=== PATIENT | female | born 1960 | race Caucasian/White ===

== ENCOUNTER → 2018-02-03 19:17 | Outpatient (CLI) | payer OTHER, SELFPAY ==
[2018-02-07 13:35] LABS: HPV APTIMA, High Risk Negative (Negative)
== END ==
PROVIDERS: Visit Provider Obstetrics & Gynecology
DX: Z12.4 Encounter for screening for malignant neoplasm of cervix (principal)
CPT/HCPCS: 88175; G0145

== ENCOUNTER → 2018-04-22 09:45 | Outpatient (CLI) | payer OTHER, SELFPAY ==
--- NOTE | 2018-04-22 09:47 | BI_ITS ---
MAMMOGRAPHY - BILATERAL SCREENING 3-D JOLANTA SYNTHESIS REASON FOR EXAM: Female, 57 years old. Bilateral Screening 3-D tomosynthesis PERTINENT HISTORY: Asymptomatic. No significant family history. TECHNIQUE: 2-D mammograms and 3-D Jolanta synthesis of the breast (s) were performed. CAD was performed. COMPARISON: 04/02/2017, 03/12/2016 and 03/02/2015. FINDINGS: The breast composition is heterogeneously dense that can obscure small breast masses. Scattered benign calcifications are seen. No dense spiculated dominant masses or suspicious microcalcification cluster are identified. No new architectural distortion, asymmetric density, adenopathy, skin thickening or nipple retraction identified. There has been no significant change since the most recent prior study identified. BI/SCREENING MAMM (CAD), BILAT IMPRESSION: No mammographic sign of malignancy. Routine yearly mammograms recommended. ASSESSMENT CATEGORY: BIRADS Category 2: Benign. A letter regarding these results will be sent to the patient by the facility within 30 days. FOLLOW UP RECOMMENDATION: Yearly follow up mammogram recommended. (A) Limitations above. Any palpable lesion if present should be followed based on clinical grounds and biopsy performed if clinically persistent for 3 months or increasing size. Approximately 10% of breast cancers are not detected by mammography. A normal mammogram should not delay biopsy of a clinically suspicious abnormality. Dense breast tissue may obscure neoplasm. Electronically Signed: Ronnie Mclaughlin, at 13:42 EDT Tel , Service support ,
== END ==
PROVIDERS: Family Provider Family Medicine; PCP Family Medicine; Referring Provider Family Medicine; Visit Provider Family Medicine
DX: Z12.31 Encounter for screening mammogram for malignant neoplasm of breast (principal)
CPT/HCPCS: 77063; 77067

== ENCOUNTER → 2019-04-23 07:00 | Outpatient (CLI) | payer OTHER, SELFPAY ==
[2019-02-09 17:32] VITALS: BMI 27.4
[2019-03-19 09:23] VITALS: BMI 27.4
--- NOTE | 2019-04-23 07:00 | BI_ITS ---
BILATERAL DIGITAL MAMMOGRAM WITH TOMOSYNTHESIS: Mediolateraloblique and craniocaudal views demonstrate no evidence of dominant parenchymal masses. No cluster of microcalcifications or architectural distortion is seen. No evidence of skin thickening is identified. There has been no significant change since 04/22/2018. Breast Density: The breast tissue is extremely dense which may lower the sensitivity of mammography. CAD was used to assist in final assessment. BI/SCREEN MAMM (CAD) W/JOLANTA BILAT IMPRESSION: Normal bilateral mammogram Yearly follow-up mammogram recommended. ASSESSMENT CATEGORY: BIRADS Category 1: Negative. A letter regarding these results will be sent to the patient by the facility within 30 days. Continued annual mammograms is recommended. Approximately 10% of breast cancers are not detected by mammography. A normal mammogram should not delay biopsy of a clinically suspicious abnormality. [id number] Electronically Signed: Drew Elena, at 16:52 EDT Tel , Service support ,
== END ==
PROVIDERS: Family Provider Family Medicine; PCP Family Medicine; Referring Provider Obstetrics & Gynecology; Visit Provider Obstetrics & Gynecology
DX: Z12.31 Encounter for screening mammogram for malignant neoplasm of breast (principal)
CPT/HCPCS: 77063; 77067

== ENCOUNTER → 2019-07-06 08:15 | Outpatient (CLI) | payer OTHER, SELFPAY ==
[2019-03-19 09:23] VITALS: BMI 27.4
--- NOTE | 2019-07-06 08:22 | RAD_ITS ---
STUDY: X-RAY - LEFT SHOULDER REASON FOR EXAM: Female, 58 years old. CHRONIC LEFT SHOULDER PAIN, DECREASED ROM TECHNIQUE: 4 view(s) of the shoulder. COMPARISON: None. FINDINGS: Normal glenohumeral articulation. Normal acromioclavicular joint. Normal acromion. Normal humeral head and visualized proximal humerus. The soft tissue structures are unremarkable. Normal visualized pulmonary apex. RAD/Shoulder min 2 Views IMPRESSION: Normal x-ray examination of the shoulder. Electronically Signed: Asher Crowley MD at 13:20 EST Tel , Service support ,
== END ==
PROVIDERS: Family Provider Family Medicine; PCP Family Medicine; Referring Provider Family Medicine; Visit Provider Family Medicine
DX: M25.512 Pain in left shoulder (principal)
CPT/HCPCS: 73030

== ENCOUNTER 2019-07-13 07:15 | Outpatient (RCR) | payer OTHER, SELFPAY ==
--- NOTE | 2018-12-24 16:30 | MASS.EVAL_ITS ---
Massage Therapy Evaluation: Initial Evaluation Date: 12/23/2018 SUBJECTIVE: Gertrudis is a 58 year old female who was referred to the [facility] facility for a massotherapy evaluation by Dr. Cruz with the diagnosis of low back pain. Gertrudis presents today with the symptoms of pain and stiffness in her low back. She also complains of tension and pain in her neck, mid back. 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 She reports having minimal improvement with exercise and stretching. OBJECTIVE: Upon observation Gertrudis has some posture issues with her head and shoulders forward from the neutral position in sitting and standing. After examination and palpation I found Gertrudis to have high muscle tension with tenderness and myofascial restrictions in her sub occipitals, levator scapulae, trapezius, rhomboids, scalenes, and thoracic paraspinals. Her QL?s, lumbar paraspinals, piriformis, glute medius and minimus all were very tight with fascial restrictions, tender points and trigger points. The first treatment consisted of a one hour massage to her upper body with myofascial release, muscle stripping, trigger point compression techniques, and cervical manual traction. ASSESSMENT: I feel that Gertrudis is a good candidate for massotherapy at this time. She had a favorable response to the first treatment with reduction in her muscle aches, pain and tension. She also had improvement in her cervical flexibility and low back flexibility. PLAN: The plan of care was reviewed with the patient. The patient is to be seen on an as needed basis for a total of ten sessions with the recommendation of once every month for a one hour treatment.
--- NOTE | 2019-07-13 08:23 | MASS.DISCH ---
Massage Therapy Discharge Summary: Discharge Date: 07/13/2019 Gertrudis was seen for a massotherapy evaluation on 12/23/2018 with the diagnosis of low back pain. She was treated with six sessions of massage therapy consisting of moderate to deep pressure soft tissue techniques, myofascial release and trigger point compression to her cervical, thoracic, lower back, upper extremities, lower extremities and hips. Gertrudis responded well to the therapy by reporting decreased tension and pain throughout her head, neck, shoulders, lower back and hips. Her goals for therapy were met throughout the treatment sessions. At this time this patient is being discharged from our care at [facility] facility.
== END 2019-07-13 19:00 | disposition home or self-care (01) ==
LOC: MASS 07:15
PROVIDERS: Family Provider Family Medicine; PCP Family Medicine; Referring Provider Family Medicine; Visit Provider Family Medicine
DX: M54.5 Low back pain (principal)
CPT/HCPCS: 97124

== ENCOUNTER → 2019-07-28 06:18 | Outpatient (CLI) | payer OTHER, SELFPAY ==
[2019-03-19 09:23] VITALS: BMI 27.4
--- NOTE | 2019-07-28 06:37 | MRI_ITS ---
STUDY: MRI LEFT SHOULDER REASON FOR EXAM: Left shoulder pain for 6-8 months, limited range of motion, no specific injury. TECHNIQUE: Standardized fat and water weighted pulse sequences were obtained in all 3 orthogonal planes. COMPARISON: Radiographs 07/06/2019. FINDINGS: There is supraspinatus tendinosis and a small low-grade partial thickness tear of the articular surface of the distal anterior supraspinatus tendon measuring 1 cm in length (proton density coronal image 7; T2 coronal image 7). Normal infraspinatus tendon. There is mild subscapularis tendinosis and a small low-grade partial thickness tear of the undersurface of the subscapularis tendon (proton density axial image 13; T2 axial image 13) measuring 0.5 cm in length. Normal teres minor tendon. Normal supraspinatus muscle. Normal infraspinatus muscle. Normal subscapularis muscle. Normal teres minor muscle. There is a small glenohumeral joint effusion with fluid extending into the bicipital tendon sheath. There is a small cyst in the posterior aspect of the greater tuberosity. Normal biceps labral complex with a small sublabral recess (proton density coronal image 9). Normal intracapsular long biceps tendon. Normal labrum. Normal capsulo- ligamentous complex. There is mild acromioclavicular arthrosis without substantial undersurface osteophytes (T2 sagittal image 7). There is a Type II morphology (curved), with a neutral orientation. There is a small volume of subacromial-subdeltoid bursal fluid. Normal visualized coracohumeral and coracoacromial ligaments. Normal deltoid muscle. Normal trapezius muscle. MRI/Upper Ext Joint Only(Routine) IMPRESSION: Small low-grade partial thickness tear and tendinosis of the supraspinatus tendon. Small low-grade partial thickness tear and mild tendinosis of the subscapularis tendon. Mild acromioclavicular arthrosis. Mild subacromial-subdeltoid bursitis. Small glenohumeral joint effusion. Electronically Signed: Mario Mckinnon MD at 7:34 EST Tel , Service support ,
== END ==
PROVIDERS: Family Provider Family Medicine; PCP Family Medicine; Referring Provider Family Medicine; Visit Provider Family Medicine
DX: M75.112 Incomplete rotator cuff tear or rupture of left shoulder, not specified as traumatic (principal); M19.012 Primary osteoarthritis, left shoulder
CPT/HCPCS: 73221

== ENCOUNTER 2019-09-11 07:30 | Outpatient (RCR) | payer OTHER, SELFPAY ==
[2019-03-19 09:23] VITALS: BMI 27.4
--- NOTE | 2019-08-11 17:38 | HP.PTEVAL_ITS ---
Patient's Visit Information GERTRUDIS ARELLANO is a 58 year old F referred to Physical Therapy by Gertrudis Cruz DO with a diagnosis of L shoulder bursitis, OA and partial thickness tear.. Date of Evaluation: 08/11/19 Physical Therapist: Topher Gonzalez, DPT, OCS, CSCS - Visit Plan Frequency: 3x /Week Duration: 2-4 Weeks Plan: 3x/week for 2-4 weeks for... 1. US nonthermal to R supra unti comfortable at rest. 2. manual grade 1 ROM for pain and inflammation to L shoulder. 3. strengthen L scap and RC and posture and progress to HEP. 4. Ensure activitiy modification of sleeping position, sitting posture, ergonomics. - Subjective Findings: L shoulder hurts. Reaching out to side hurts down upper arm. Did MRI and has some small tendon tears. It has hurt for 8 months intemrittently with reaching, comfortable at rest for the most part. Sleeping on L side is not possible but she would like to. Is a side belly sleeper. Hurts in morning. Aches all the time if uses it. Is right handed. 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 Worse after work. 8 hour shifts+. Basic ADLs are OK and getting done but painful, bra is painful. Can fasten belt. Up to the side and heavy objects are the worst. Hobbies include grandkids ballgames, No problem with hobbies but can hurt. - Pain L shoulder/upper arm Pain Intensity (Out of 10): 2 Pain Intensity Range: 0, 8 Comment: putting coat on - Objective L shoulder tender to palpation moderately at supra and subscap insertion. Posture is slightly forward head and protracted scap. + Brewer Enrrique and neer on L, - external rotation lag test, - drop arm test. Has full aROM of R shoulder and L shoulder but painful arc on L abd and flexion adn slow and hesitant to lift and end range of external rotation. Strength R shoulder 4/5 adn L ext rot 4- painful, IR 4, bi and tri 4/5, and flexion and abduction 3+ adn painful. 2/3 bi and tricep reflexes. Sensation UE WNL to gross light touch. - Goals Goal 1:: Patient comfortable at rest adn 2/10 at workst lifting L arm, 755 better. Goal Time Frame: 4-6 Weeks Goal 2:: i approp HEP to minimzie future problems and management of condition. Goal Time Frame: 4-6 Weeks Goal 3:: Pt sleep without waking due to pain. Goal Time Frame: 4-6 Weeks Goal 4:: Work without ncereased pain. Goal Time Frame: 4-6 Weeks Goal 5:: Quickdash score of <15 Goal Time Frame: 4-6 Weeks - Rehabilitation Potential Physical Therapy Diagnosis: L shoulder pain. Rehabilitation Potential: Fair - Anticipated Interventions Patient/Client Instruction: Educate patient on: Condition, Plan of Care For the Purpose of:: To decrease pain, To improve muscle performance and motor function, To improve ability of physical actions for home/community/work/leisure Therapeutic Exercise to Include: Strength training, Flexibilty training, Passive ROM, Active ROM For the Purpose of:: To decrease pain, To decrease swelling/inflammation, To improve muscle performance and motor function, To improve ability of physical actions for home/community/work/leisure Manual Therapy Techniques to Include: Mobilization Comment: grade 1 L shoulder For the Purpose of:: To decrease pain Ultrasound (thermal/non thermal): Yes For the Purpose of:: To decrease swelling/inflammation, To improve nutrient delivery to tissue Thank you for the opportunity to evaluate your patient. For Medicare and Medicare HMO plans, please review the plan of care and approve it. It will need to be FAXED BACK to us at [phone] for Medicare purposes. For Medicare only, by signing this I certify the plan of care. Please let me know if there are questions or concerns regarding this plan of care. Physician Signature: Date:
--- NOTE | 2019-08-28 07:58 | HP.PTREVAL ---
Gertrudis Cruz, DO, It has been my pleasure to treat GERTRUDIS ARELLANO over the last 8 visits for L shoulder bursitis, OA and partial thickness tear.. Please see the progress note below for an update on the physical therapy plan of care! Subjective: Activities normal but hurts sometimes. Comfortable at rest.Sleeping well but not on L side. Doing OTB exercises 2-3x10. Work is going OK as far as shoulder is concerned. Has not gotten under desk keyboard tray yet. Objective/Function: Full aROM L shoulder but painful especially thumb down abd and slightly with flexion. Strength is 4- flexiona dn abd with pain, 4 ext rotation slight pain, IR and biceps, triceps 4+ without pain. Coming along nicely but slowly Plan Plan: f/u 2 weeks to check progress on sbjective, see if needs new TB and possibly elevation strennghtening. Goals Goal 1:: Patient comfortable at rest adn 2/10 at workst lifting L arm, 755 better. Goal Time Frame: 4-6 Weeks Goal Progress: Progressing Goal 2:: i approp HEP to minimzie future problems and management of condition. Goal Time Frame: 4-6 Weeks Goal Progress: Goal Met Goal 3:: Pt sleep without waking due to pain. Goal Time Frame: 4-6 Weeks Goal Progress: Progressing Goal 4:: Work without ncereased pain. Goal Time Frame: 4-6 Weeks Goal 5:: Quickdash score of <15 Goal Time Frame: 4-6 Weeks Anticipated Interventions Patient/Client Instruction: Educate patient on: Condition, Plan of Care For the Purpose of:: To decrease pain, To improve muscle performance and motor function, To improve ability of physical actions for home/community/work/leisure Therapeutic Exercise to Include: Strength training, Flexibilty training, Passive ROM, Active ROM For the Purpose of:: To decrease pain, To decrease swelling/inflammation, To improve muscle performance and motor function, To improve ability of physical actions for home/community/work/leisure Manual Therapy Techniques to Include: Mobilization Comment: grade 1 L shoulder For the Purpose of:: To decrease pain Ultrasound (thermal/non thermal): Yes For the Purpose of:: To decrease swelling/inflammation, To improve nutrient delivery to tissue Please do not hesitate to contact me at [phone] by phone or if you have questions or concerns regarding this new plan of care! Sincerely, Topher Gonzalez, DPT, OCS, CSCS
--- NOTE | 2019-09-11 07:56 | HP.PTDCSUM ---
HP - PT D/C Summary It has been my pleasure to treat GERTRUDIS ARELLANO under orders from Gertrudis Cruz DO, for the diagnosis of L shoulder bursitis, OA and partial thickness tear. for a total of 9 visit(s). Discharge Date: 09/11/19 Please see the following information for a summary of their discharge status. - Subjective Subjective: Not as compliant with exercises as she would like, daily. Going the right way. Still hurts to lift out to side. Pain in last week lifting to side with lifting 10/10 and drying hair bringing it back down. Uncomfortable at rest annoying 3/10. - Pain L shoulder/upper arm Pain Intensity (Out of 10): 3 - Overall Improvement % Improvement: 60 - Objective Objective/Function: Full aROM L shoulder but pain with elevation abduction> flexion. weak and painful in ext rotation adn flexion and abduction. + speeds and empty can adn mario alberto gray. Appropriate to return to doctor for next step(ortho?). Very tender of suprascap tendon. - Goals Goal 1:: Patient comfortable at rest adn 2/10 at workst lifting L arm, 755 better. Goal Progress: Not Progressing Goal 2:: i approp HEP to minimzie future problems and management of condition. Goal Progress: Goal Met Goal 3:: Pt sleep without waking due to pain. Goal Progress: Not Progressing Goal 4:: Work without ncereased pain. Goal Progress: Not Progressing Goal 5:: Quickdash score of <15 Goal Progress: Not Progressing - Plan Plan: d/c and pt to schedule with physicain for f/u due to lack of continued improvement and her frustration. - D/C Information Discharge Comments: Pt to cotnact doctor regarding f/u due to lack of progress in PT and frustrration If there are questions or concerns regarding this patient's physical therapy, please feel free to call me at [phone]. Thank you for the referral of this patient. Sincerely, Topher Gonzalez, DPT, OCS, CSCS
== END 2019-09-11 19:00 | disposition home or self-care (01) ==
LOC: PT 07:30
PROVIDERS: Family Provider Family Medicine; PCP Family Medicine; Visit Provider Family Medicine
DX: M75.112 Incomplete rotator cuff tear or rupture of left shoulder, not specified as traumatic (principal); M75.52 Bursitis of left shoulder; M19.012 Primary osteoarthritis, left shoulder
CPT/HCPCS: 97035; 97110; 97116; 97161; 97164; 97530

== ENCOUNTER → 2019-09-29 07:11 | Outpatient (CLI) | payer OTHER, SELFPAY ==
[2019-03-19 09:23] VITALS: BMI 27.4
--- NOTE | 2019-09-29 07:13 | RAD_ITS ---
STUDY: X-RAY - LUMBAR SPINE REASON FOR EXAM: Female, 58 years old. LBP, left leg pain -- NKI -- pt states pain x a long time TECHNIQUE: 5 view(s) of the lumbar spine were obtained. COMPARISON: None FINDINGS: Normal lumbar lordosis. Minimal scoliosis, convexity to the left. There is a normal alignment of the vertebrae. There is diffuse demineralization with multi-level endplate spondylosis. There is multi-level degenerative disc disease with multi-level disc space narrowing. There is no demonstrated fracture. There is no demonstrated spondylolysis of the pars interarticulares. The soft tissue structures are unremarkable. RAD/L/S Spine Min 4 Views IMPRESSION: Osteopenia along with minimal scoliosis, convexity to the left. No acute fracture, spondylolisthesis or pars defect. Electronically Signed: Shirlene Davis MD at 0:24 EDT , Service support ,
--- NOTE | 2019-09-29 07:13 | RAD_ITS ---
STUDY: X-RAY - RIGHT SHOULDER REASON FOR EXAM: Female, 58 years old. right shoulder pain x several months -- NKI -- limited ROM, pain when raising arm laterally TECHNIQUE: 4 view(s) of the shoulder. COMPARISON: None. FINDINGS: There is mild degenerative arthrosis of the glenohumeral articulation. Normal acromioclavicular joint. Normal acromion. Normal humeral head and visualized proximal humerus. The soft tissue structures are unremarkable. There is no demonstrated fracture. Normal visualized pulmonary apex. RAD/Shoulder min 2 Views IMPRESSION: Mild degenerative disease otherwise normal x-ray examination of the shoulder. Electronically Signed: Shirlene Davis MD at 0:28 EDT , Service support ,
== END ==
PROVIDERS: PCP Family Medicine; Referring Provider Family Medicine; Visit Provider Family Medicine
DX: M25.511 Pain in right shoulder (principal); M54.16 Radiculopathy, lumbar region
CPT/HCPCS: 72110; 73030

== ENCOUNTER → 2020-04-26 12:09 | Outpatient (CLI) | payer OTHER, SELFPAY ==
[2019-03-19 09:23] VITALS: BMI 27.4
--- NOTE | 2020-04-26 12:48 | EKG12_ITS ---
Test Reason : PRE OP Blood Pressure : / mmHG Vent. Rate : 077 BPM Atrial Rate : 077 BPM P-R Int : 154 ms QRS Dur : 068 ms QT Int : 390 ms P-R-T Axes : 063 032 052 degrees QTc Int : 441 ms Normal sinus rhythm Nonspecific ST abnormality Abnormal ECG When compared with ECG of 08-FEB-2000 13:39, No significant change was found Confirmed by BARBER GUZMAN, GARRY ([id number]), digital editor PAMELA SONI ([id number]) on 04/27/2020 11:37:22 AM Referred By: Fernando Ham Confirmed By:STEFANI BLANDON MD
[2020-04-26 13:39] LABS: Hematocrit 42.8 % (37-47); Hemoglobin 13.7 g/dL (12.0-15.0); Mean Corpuscular Volume 93.9 fL (81-99); Mean Platelet Vol. 10.1 fl (6.2-12.0); Platelet Count 270 K/mm3 (150-450); RBC Distribution Width CV 12.2 % (11.6-14.6); RBC Distribution Width SD 42.3 fl (35.1-43.9); Red Blood Count 4.56 M/mm3 (4.2-5.4); White Blood Count 9.2 K/mm3 (4.4-11.0)
[2020-04-26 14:33] LABS: Anion Gap 5 (5-15); BUN 12 mg/dL (7-18); BUN/Creat Ratio 12.8 RATIO (10-20); Calcium,Total 9.4 mg/dL (8.5-10.1); Chloride 105 mmol/L (98-107); Creatinine, Serum 0.94 mg/dL (0.55-1.02); EST Glomerular Filtration Rate 64 mL/min (>60); Est Glom Filt Rate - Afr Amer 78 mL/min (>60); Glucose 113 mg/dL (74-106); Potassium 4.6 mmol/L (3.5-5.1); Sodium Level 140 mmol/L (136-145)
== END ==
PROVIDERS: PCP Family Medicine; Referring Provider Physician Assistant; Visit Provider Physician Assistant
CPT/HCPCS: 36415; 80048; 85027; 93005

== ENCOUNTER → 2020-05-06 09:50 | Outpatient (CLI) | payer OTHER, SELFPAY ==
[2019-03-19 09:23] VITALS: BMI 27.4
== END ==
PROVIDERS: PCP Family Medicine; Referring Provider Physician Assistant; Visit Provider Physician Assistant
DX: Z20.828 Contact with and (suspected) exposure to other viral communicable diseases (principal)
CPT/HCPCS: 87635; C9803; U0003

== ENCOUNTER → 2020-08-08 16:45 | Outpatient (CLI) | payer OTHER, SELFPAY ==
[2020-08-08 14:12] VITALS: BMI 28.3
[2020-08-15 08:06] LABS: HPV Genotype 16, Aptima Negative (Negative)
[2020-08-15 10:05] LABS: HPV APTIMA, High Risk Positive (Negative); HPV Genotype 18,45 Aptima Negative (Negative)
== END ==
PROVIDERS: PCP Family Medicine; Visit Provider Nurse Practitioner Women's Health
DX: Z12.4 Encounter for screening for malignant neoplasm of cervix (principal)
CPT/HCPCS: 87624; 88175; G0145

== ENCOUNTER → 2020-08-17 12:28 | Outpatient (CLI) | payer OTHER, SELFPAY ==
[2020-08-08 14:12] VITALS: BMI 28.3
[2020-08-17 10:51] VITALS: BMI 28.3
--- NOTE | 2020-08-17 12:31 | BI_ITS ---
MAMMOGRAPHY - BILATERAL SCREENING REASON FOR EXAM: Female, 59 years old. Routine annual screening examination. PERTINENT HISTORY: Non-contributory. TECHNIQUE: Digital bilateral breast jolanta (3D mammographic acquisition) in the CC and MLO projections. 2-D mediolateral oblique (MLO) and craniocaudad (CC) views of both breasts were obtained. CAD: Full Field Digital Mammography with Computer Added Detection was performed. COMPARISON: Comparison is made with prior examination 04/23/2019 and 04/22/2018. FINDINGS: Breast Composition: The breasts are heterogeneously dense, which may obscure small masses. There are no dominant masses or suspicious calcifications. Stable small benign-appearing bilateral axillary lymph nodes. No other significant abnormalities are identified. There has been no significant change since the prior study. BI/SCRN MAMM (CAD)W/JOLANTA BILAT IMPRESSION: Stable bilateral screening mammogram. Yearly follow-up mammogram recommended. (A) ASSESSMENT CATEGORY: BIRADS Category 2: Benign. A letter regarding these results will be sent to the patient by the facility within 30 days. Approximately 10% of breast cancers are not detected by mammography. A normal mammogram should not delay biopsy of a clinically suspicious abnormality. [id number] Electronically Signed: Allen Jay MD at 13:35 EST , Service support ,
[2020-08-23 15:04] LABS: HPV APTIMA, High Risk Negative (Negative)
== END ==
PROVIDERS: PCP Family Medicine; Referring Provider Nurse Practitioner Women's Health; Visit Provider Nurse Practitioner Women's Health
DX: Z12.31 Encounter for screening mammogram for malignant neoplasm of breast (principal); R87.810 Cervical high risk human papillomavirus (HPV) DNA test positive
CPT/HCPCS: 77063; 77067; 87624; 88175; G0145

== ENCOUNTER → 2021-01-31 12:34 | Outpatient (CLI) | payer OTHER, SELFPAY ==
[2020-08-17 10:51] VITALS: BMI 28.3
[2021-01-31 13:46] LABS: Erythrocyte Sedimentation Rate 9 mm/hr (0-30)
[2021-01-31 13:49] LABS: Absolute Lymphocyte Count 1.97 X10^3/uL (0.83-4.51); Absolute Neutrophil Count 4.6 X10^3/uL (2.0-7.7); Basophil# 0.03 X10^3/uL; Basophil% 0.4 % (0-1); Eosinophil# 0.15 X10^3/uL; Hematocrit 43.9 % (37-47); Hemoglobin 14.2 g/dL (12.0-15.0); Lymphocyte # 1.97 X10^3/ul (0.83-4.51); Lymphocyte % 25.9 % (19-41); Mean Corp Hgb Conc 32.3 g/dL (32-36); Mean Corpuscular Hgb 29.2 pg (27.0-32.0); Mean Corpuscular Volume 90.1 fL (81-99); Mean Platelet Vol. 9.9 fl (6.2-12.0); Monocyte# 0.82 X10^3/uL; Monocyte% 10.8 % (0-10); NRBC Flagged by Analyzer 0 % (0-5); Neutrophil % 60.5 % (47-70); Platelet Count 280 K/mm3 (150-450); RBC Distribution Width CV 12.8 % (11.6-14.6); RBC Distribution Width SD 42.2 fl (35.1-43.9); Red Blood Count 4.87 M/mm3 (4.2-5.4); White Blood Count 7.6 K/mm3 (4.4-11.0)
[2021-01-31 14:06] LABS: ALB/GLOB Ratio 1.2 RATIO (0.9-2.4); AST(SGOT) 21 U/L (15-37); Alanine Aminotransfer ALT/SGPT 39 U/L (13-56); Albumin, Serum 4.2 g/dL (3.2-5.0); Alkaline Phosphatase 98 U/L (45-117); Anion Gap 4 (5-15); BUN 11 mg/dL (7-18); BUN/Creat Ratio 13.1 RATIO (10-20); Calcium,Total 9.5 mg/dL (8.5-10.1); Chloride 106 mmol/L (98-107); Creatinine, Serum 0.84 mg/dL (0.55-1.02); EST Glomerular Filtration Rate 73 mL/min (>60); Est Glom Filt Rate - Afr Amer 88 mL/min (>60); Globulin 3.5 g/dL (2.2-4.2); Glucose 89 mg/dL (74-106); Iron 75 ug/dL (50-170); Potassium 4.2 mmol/L (3.5-5.1); Protein, Total 7.7 g/dL (6.4-8.2); Sodium Level 142 mmol/L (136-145); Vitamin B12 445 pg/mL (211-911)
== END ==
PROVIDERS: PCP Family Medicine; Referring Provider Family Medicine; Visit Provider Family Medicine
DX: R19.7 Diarrhea, unspecified (principal)
CPT/HCPCS: 36415; 80053; 82607; 83540; 85025; 85652; 86140

== ENCOUNTER 2021-08-21 16:30 | Outpatient (CLI) | payer OTHER, SELFPAY ==
[2021-08-25 14:15] LABS: HPV APTIMA, High Risk Negative (Negative)
== END 2021-08-21 23:59 | disposition home or self-care (01) ==
LOC: LABSPEC 16:32
PROVIDERS: PCP Family Medicine; Visit Provider Nurse Practitioner Women's Health
DX: Z12.4 Encounter for screening for malignant neoplasm of cervix (principal); Z78.0 Asymptomatic menopausal state
CPT/HCPCS: 87624; 88175; G0145

== ENCOUNTER 2021-10-31 06:47 | Day surgery (SDC) | payer OTHER, SELFPAY ==
--- NOTE | 2021-10-31 | COLBX_PTH ---
PATIENT: GERTRUDIS ARELLANO LOC: EN U#:[id number] AGE/SX: 61/F ROOM: RE10/31/[address]: Dr. Ronnie Mac MD : 1960 BED: DIS: 10/31/2021 SPEC #: [id number] RECD: 10/31/21 09:42 STATUS: ARNALDO REMirlande #: [id number] SHAMEKA: 10/31/21 00:[address]: Ronnie Mac DEPT: SURGICAL PATHOLOGY RECD BY: Sarthak Parsons ENTERED: 10/31/21 10:27 SP TYPE: COLON BX TOMMY DR: Dr. Gertrudis Cruz, DO Tissues: A - COLON BIOPSY B - Transverse colon C - Descending colon Procedures: Surgery Specimen Level IV HEADER OPERATION: Colonoscopy PRE-OP DIAGNOSIS: Screening TISSUE SUBMITTED: A ? Random colon biopsy, B ? Mid transverse polyp biopsy, C ? Descending colon polyp biopsy MICROSCOPIC DIAGNOSIS A. Colon, random biopsy: Fragments of colonic mucosa, no pathologic diagnosis. B. Mid transverse colon polyp, biopsy: Fragments of tubular adenoma. C. Descending colon polyp, biopsy: Fragments of tubular adenoma. FIDELIA:nesha 11/01/2021 MICROSCOPIC DESCRIPTION Slides are reviewed. GROSS DESCRIPTION A - Received in fixative is one container labeled with the patient's name and designated random colon biopsy. The specimen consists of multiple irregular fragments of light medeiros soft tissue that in aggregate measure 1 x 0.3 x 0.1 cm. The specimen is totally submitted in one cassette. B - Received in fixative is one container labeled with the patient's name and designated mid transverse polyp. The specimen consists of two irregular fragments of light medeiros soft tissue that in aggregate measure 0.5 x 0.5 x 0.1 cm. The specimen is totally submitted in one cassette. C - Received in fixative is one container labeled with the patient's name and designated descending colon polyp biopsy. The specimen consists of multiple irregular fragments of light medeiros soft tissue that in aggregate measure 0.6 x 0.2 x 0.1 cm. The specimen is totally submitted in one cassette. / AM:nesha 10/31/2021 TC:1 CPT: 86095 x3
[2021-10-31] MEDS: Lactated Ringers 1,000 ML 15 ML IV (07:05)
--- NOTE | 2021-10-31 07:14 | HP.PCM_ITS ---
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: No Is patient in pain?: No Allergies codeine Allergy (Severe, Verified 06/02/21 13:55) unknown guaifenesin Allergy (Severe, Verified 06/02/21 13:55) Unknown levofloxacin [From Levaquin] Allergy (Severe, Verified 06/02/21 13:55) knot in throat naltrexone Allergy (Severe, Verified 06/02/21 13:55) lump in throat, muscle cramps pseudoephedrine Allergy (Severe, Verified 06/02/21 13:55) Unknown Sulfa (Sulfonamide Antibiotics) Allergy (Severe, Verified 06/02/21 13:55) unknown Medications sertraline 25 mg tablet 100 mg PO QDAY tab 11/12/17 [History Confirmed 06/02/21] calcium carbonate-vitamin D3 600 mg (1,500 mg)-400 unit capsule cap PO 02/03/18 [History Confirmed 06/02/21] multivitamin 1 tab PO QAM 02/03/18 [History Confirmed 06/02/21] ascorbate calcium (vitamin C) 500 mg tablet 500 mg PO DAILY 08/08/20 [History Confirmed 06/02/21] atenolol 25 mg tablet 25 mg PO DAILY 03/24/21 [History Confirmed 06/02/21] mupirocin 2 % topical ointment 1 applic TOPICAL TID #15 g 03/24/21 [Rx Confirmed 06/02/21] [facility] Medical History (Updated 06/02/21 @ 15:[address] Ronnie Mac MD) Anxiety Cervicalgia Depression Elevated antinuclear antibody ([place]) level Kalie Rob virus infection H/O osteopenia Intestinal disaccharidase deficiency Leg length discrepancy Low calcium levels Migraine Myalgia and myositis Neurodermatitis Polyarthrosis Positive Lyme disease serology Proteinuria Sesamoiditis Sleep apnea Sprain of left ankle Tachycardia Visual floaters Surgical History Cervical vertebral fusion Ganglion cyst wrist surgery H/O section H/O rotator cuff surgery History of salpingectomy S/P left oophorectomy Family History Mother COPD (chronic obstructive pulmonary disease) Narcolepsy Cardiomyopathy Father COPD (chronic obstructive pulmonary disease) AAA (abdominal aortic aneurysm) Sister Asthma Seizures Migraine Grandmother Diabetes Cancer bone Social History household members: none housing: condominium current occupational status: employed current occupation: [employer] pets and animals: No Smoking Status: Never smoker second hand exposure: No alcohol intake: current alcohol intake frequency: a few times a week Alcohol type: beer and wine substance use type: does not use caffeine: Yes what type of physical activity do you participate in: none seatbelt use: always do you feel safe at home: Yes additional social history: -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 The patient is referred by Dr. Gertrudis Cruz and a written copy of my surgical consult recommendations will return to her. There are concerns of the patient is having intermittent loose stools and this started approximate 1 year prior. Most recent colonoscopy was 10 years ago and was felt to be normal by Dr. Stepan Agrawal. I do not see any family history of colon cancer. As of May 17, 2021 white blood cell count was 7.6 with a hemoglobin 14.2 hematocrit 43.9 and a platelet count of 280,000. Sed rate was 9. C-reactive protein was 10.8. BUN 11 creatinine 0.84. Liver function tests were normal. She denies fever chills or sweats. She has not experienced Covid-19 as far she is aware. She has been vaccinated with 2 shots. She denies personal or family history of inflammatory bowel disease. She has not had any abdominal surgery. She otherwise enjoys a healthy lifestyle ROS General General: No weight change, appetite, fatigue, colon cancer, breast cancer or weakness HEENT HEENT: No difficulty swallowing, eye injury, eye surgery, swollen glands or hoarseness Endo Endocrine: No thyroid disease, diabetes mellitus, thyroid cancer, Hair loss, heat intolerance or cold intolerance Skin Skin: No rash or changing moles Breast Breast: No left breast lump, right breast lump, nipple discharge, breast pain, abnormal mammogram, abnormal US or breast enlargement Musc Musculoskeletal: Yes arthritis; No back problems, rheumatoid arthritis, gout or joint pain Cardio Cardiovascular: No murmur, pacemaker, heart disease, atrial fibrillation, high blood pressure, heart attack, heart stent, palpitations, shortness of breat with exertion or chest pain Psych Psychiatric: Yes depression and anxiety; No hearing voices Resp Respiratory: No shortness of breath, Yes sleep apnea, No cough, No COPD, No asthma, No emphysema and No wheezing Gastro Gastrointestinal: No abdominal pain, No nausea or vomiting, Yes diarrhea, No constipation, No blood in stool, No acid reflux, No hemorrhoids, No ulcers, No gallbladder problem and No black,tarry stools [place] Hematologic: No blood thinners, No blood disorders, No bleeding, No anemia and No blood clots Neuro Neurologic: No system reviewed and no additional complaints, except as documented, No as per HPI, No abnormal gait, No abnormal hearing, No abnormal movements, No abnormal speech, No behavioral changes, No burning sensations, No confusion, No convulsions, No disequilibrium, No dizziness, No localized weakness, No frequent falls, No headache(s), No lack of coordination, No loss of vision, No memory loss, No numbness, No other visual disturbances, No radicular pain, No restless legs, No sensory deficit, No syncope, No tingling, No tremor(s), No weakness and No other Exam Const General: cooperative, healthy appearing, comfortable and no acute distress Nutritional Appearance: overweight Orientation: alert and awake [facility] Head: normal to inspection Eyes General: appearance normal, both eyes and all related structures Resp Effort & Inspection: normal respiratory effort Auscultation: clear to auscultation bilaterally Cardio Rate: regular rate Rhythm: regular rhythm GI Palpation: soft Other: Nontender, no hepatosplenomegaly, Musc Cervical Spine: normal cervical lordosis Neuro General: patient alert and patient awake Extrem General: normal to inspection Psych Appearance: grossly normal Assessment and Plan Assessment and Plan (1) Screening for intestinal cancer: Status: Acute Plan - Dr. Ronnie Mac MD: I recommend a colonoscopy with possible biopsy or polypectomy as indicated. The patient's had some intermittent looser stool issues but difficult to appreciate how symptomatic these are. This is been ongoing for couple years. There is no particular association that she can make. Careful inspection of the bowel and if need be random colonic biopsies would be pursued. She has had an opportunity to ask and have questions answered. She w ould prefer that we perform this with monitored anesthesia care as she states that her previous colonoscopy she was quite tortuous. She is aware of the technique, benefit, risk, alternatives. We will schedule procedure at her discretion. I appreciate the opportunity of assisting with her surgical care. Copy: Dr. Gertrudis Mac M.D., F.A.C.S. I have re-examined the patient. There are no clinical changes since date of exam. Ronnie Mac M.D., F.A.C.S.
[2021-10-31 07:19] VITALS: BP 114/76; PULSE 55; RESP 16; TEMP 36.4; O2SAT 100; BMI 26.7
--- NOTE | 2021-10-31 08:37 | OP.COLON_ITS ---
Patient Name: Gertrudis Uribe Procedure Date: 10/31/2021 8:09 AM Date of : 1960 Age: 61 Procedure: Colonoscopy Indications: Screening for colorectal malignant neoplasm Providers: Ronnie Mac MD Referring MD: Gertrudis Cruz Medicines: See the Anesthesia note for documentation of the administered medications Patient Profile: Last Colonoscopy: 10 years ago. Complications: No immediate complications. Procedure: Pre-Anesthesia Assessment: - Prior to the procedure, a History and Physical was performed, and patient medications and allergies were reviewed. The patient's tolerance of previous anesthesia was also reviewed. The risks and benefits of the procedure and the sedation options and risks were discussed with the patient. All questions were answered, and informed consent was obtained. Prior Anticoagulants: The patient has taken no previous anticoagulant or antiplatelet agents. ASA Grade Assessment: II - A patient with mild systemic disease. After reviewing the risks and benefits, the patient was deemed in satisfactory condition to undergo the procedure. After I obtained informed consent, the scope was passed under direct vision. Throughout the procedure, the patient's blood pressure, pulse, and oxygen saturations were monitored continuously. The colonoscope was introduced through the anus and advanced to the cecum, identified by appendiceal orifice and ileocecal valve. The colonoscopy was performed without difficulty. The patient tolerated the procedure well. The quality of the bowel preparation was good. The ileocecal valve and the appendiceal orifice were photographed. Scope In: 8:20:17 AM Scope Withdrawal Time 0 hours 8 minutes 20 seconds Scope Out: 8:32:27 AM Total Procedure Duration Time 0 hours 12 minutes 10 seconds Findings: The digital rectal exam findings include non-thrombosed external hemorrhoids, non-thrombosed internal hemorrhoids and internal hemorrhoids that prolapse with straining, but spontaneously regress to the resting position (Grade II). A 4 mm polyp was found in the mid transverse colon. The polyp was sessile. The polyp was removed with a cold biopsy forceps. Resection and retrieval were complete. A 4 mm polyp was found in the proximal descending colon. The polyp was sessile. The polyp was removed with a cold biopsy forceps. Resection and retrieval were complete. Biopsies for histology were taken with a cold forceps from the entire colon for evaluation of microscopic colitis. Impression: - Non-thrombosed external hemorrhoids, non-thrombosed internal hemorrhoids and internal hemorrhoids that prolapse with straining, but spontaneously regress to the resting position (Grade II) found on digital rectal exam. - One 4 mm polyp in the mid transverse colon, removed with a cold biopsy forceps. Resected and retrieved. - One 4 mm polyp in the proximal descending colon, removed with a cold biopsy forceps. Resected and retrieved. - Biopsies were taken with a cold forceps from the entire colon for evaluation of microscopic colitis. Recommendation: - Discharge patient to home. - Resume previous diet. - Continue present medications. - Repeat colonoscopy in 5 years for surveillance based on pathology results. - Telephone my office for pathology results in 1 week. Procedure Code(s): --- Professional --- 06456, Colonoscopy, flexible; with biopsy, single or multiple Diagnosis Code(s): --- Professional --- Z12.11, Encounter for screening for malignant neoplasm of colon K64.1, Second degree hemorrhoids K64.4, Residual hemorrhoidal skin tags D12.3, Benign neoplasm of transverse colon (hepatic flexure or splenic flexure) D12.4, Benign neoplasm of descending colon CPT copyright 2017 [employer]. All rights reserved. The codes documented in this report are preliminary and upon laborer aquatic life review may be revised to meet current compliance requirements. Ronnie Mac MD 10/31/2021 8:37:33 AM This report has been signed electronically. Number of Addenda: 0 Note Initiated On: 10/31/2021 8:09 AM
[2021-10-31 08:38] VITALS: BP 104/66; BP 114/76; PULSE 81; RESP 16; TEMP 36.4; O2SAT 96
--- NOTE | 2021-10-31 08:38 | OP.CCLET_ITS ---
10/31/2021 Gertrudis Cruz [address] [place] [address] Re : Colonoscopy procedure for Gertrudis Uribe Dear Dr. Cruz This procedure was performed on Sunday, October 31, 2021. My impressions and recommendations are as follows: Impressions : - Non-thrombosed external hemorrhoids, non-thrombosed internal hemorrhoids and internal hemorrhoids that prolapse with straining, but spontaneously regress to the resting position (Grade II) found on digital rectal exam. - One 4 mm polyp in the mid transverse colon, removed with a cold biopsy forceps. Resected and retrieved. - One 4 mm polyp in the proximal descending colon, removed with a cold biopsy forceps. Resected and retrieved. - Biopsies were taken with a cold forceps from the entire colon for evaluation of microscopic colitis. Recommendations : - Discharge patient to home. - Resume previous diet. - Continue present medications. - Repeat colonoscopy in 5 years for surveillance based on pathology results. - Telephone my office for pathology results in 1 week. My findings are described in the full procedure note, which is enclosed. If I can be of further assistance, please feel free to contact me at Doctor phone number(s): Work: . Sincerely, Ronnie Mac MD 10/31/2021 8:37:33 AM This report has been signed electronically.
[2021-10-31 08:43] VITALS: BP 114/76; BP 115/67; PULSE 76; RESP 16; O2SAT 95
[2021-10-31 08:48] VITALS: BP 112/67; BP 114/76; PULSE 72; RESP 16; O2SAT 95
[2021-10-31 08:53] VITALS: BP 113/70; BP 114/76; PULSE 65; RESP 16; TEMP 36.3; O2SAT 96
[2021-10-31 09:00] VITALS: BP 114/76
== END 2021-10-31 09:29 | disposition home or self-care (01) ==
LOC: EN 06:50 → AC 06:52
PROVIDERS: PCP Family Medicine; Referring Provider Family Medicine; Visit Provider Surgery
PROC: 0DJD8ZZ Inspection of Lower Intestinal Tract, Via Natural or Artificial Opening Endoscopic (ICD-10-PCS; CPT 45378; principal; 2021-10-31 07:55)
DX: Z12.11 Encounter for screening for malignant neoplasm of colon (principal); D12.3 Benign neoplasm of transverse colon; D12.4 Benign neoplasm of descending colon; K64.1 Second degree hemorrhoids; K64.4 Residual hemorrhoidal skin tags; I10 Essential (primary) hypertension; E66.3 Overweight; M19.90 Unspecified osteoarthritis, unspecified site; G47.30 Sleep apnea, unspecified; F32.A Depression, unspecified; F41.9 Anxiety disorder, unspecified; Z68.26 Body mass index [BMI] 26.0-26.9, adult; Z79.899 Other long term (current) drug therapy
CPT/HCPCS: 45380; 87426; 88305; C9803; J7120

== ENCOUNTER → 2022-09-17 | Outpatient (CLI) | payer OTHER, SELFPAY ==
--- NOTE | 2022-09-17 10:12 | BI_ITS ---
MAMMOGRAPHY - BILATERAL SCREENING REASON FOR EXAM: Female, 61 years old. Routine annual screening examination. PERTINENT HISTORY: Non-contributory. TECHNIQUE: Digital bilateral breast jolanta (3D mammographic acquisition) in the CC and MLO projections. 2-D mediolateral oblique (MLO) and craniocaudad (CC) views of both breasts were obtained. CAD: Full Field Digital Mammography with Computer Added Detection was performed. COMPARISON: Comparison is made with prior study dated August 17, 2020 and April 23, 2019. FINDINGS: Breast Composition: The breasts are heterogeneously dense, which may obscure small masses. There are no dominant masses or suspicious calcifications. Stable small benign-appearing bilateral axillary lymph nodes. No other significant abnormalities are identified. There has been no significant change since the prior study. BI/SCRN MAMM (CAD)W/JOLANTA BILAT IMPRESSION: Stable bilateral screening mammogram. Yearly follow-up mammogram recommended. (A) ASSESSMENT CATEGORY: BIRADS Category 2: Benign. A letter regarding these results will be sent to the patient by the facility within 30 days. Approximately 10% of breast cancers are not detected by mammography. A normal mammogram should not delay biopsy of a clinically suspicious abnormality. [id number] Electronically Signed: Allen Jay MD at 11:36 EST ,
[2022-09-21 00:07] LABS: HPV Genotype 16, Aptima Negative (Negative)
[2022-09-21 08:28] LABS: HPV APTIMA, High Risk Positive (Negative); HPV Genotype 18,45 Aptima Negative (Negative)
== END | disposition home or self-care (01) ==
PROVIDERS: PCP Family Medicine; Referring Provider Nurse Practitioner Women's Health; Visit Provider Nurse Practitioner Women's Health
DX: Z12.31 Encounter for screening mammogram for malignant neoplasm of breast (principal)
CPT/HCPCS: 77063; 77067; 87624; 88175; G0145

== ENCOUNTER → 2023-03-19 | Outpatient (CLI) | payer OTHER, SELFPAY ==
[2023-03-19 09:49] LABS: Absolute Lymphocyte Count 1.68 X10^3/uL (0.83-4.51); Absolute Neutrophil Count 4.4 X10^3/uL (2.0-7.7); Basophil# 0.02 X10^3/uL; Basophil% 0.3 % (0-1); Eosinophil# 0.22 X10^3/uL; Eosinophils% 3.2 % (0-5); Hematocrit 40.1 % (37-47); Lymphocyte # 1.68 X10^3/ul (0.83-4.51); Lymphocyte % 24.3 % (19-41); Mean Corp Hgb Conc 34.9 g/dL (32-36); Mean Corpuscular Hgb 31.9 pg (27.0-32.0); Mean Corpuscular Volume 91.3 fL (81-99); Mean Platelet Vol. 9.3 fl (6.2-12.0); Monocyte# 0.56 X10^3/uL; Monocyte% 8.1 % (0-10); NRBC Flagged by Analyzer 0 % (0-5); Neutrophil # 4.42 X10^3/uL (2.7-7.7); Neutrophil % 63.8 % (47-70); Platelet Count 216 K/mm3 (150-450); RBC Distribution Width CV 12.8 % (11.6-14.6); RBC Distribution Width SD 42.9 fl (35.1-43.9); Red Blood Count 4.39 M/mm3 (4.2-5.4); White Blood Count 6.9 K/mm3 (4.4-11.0)
[2023-03-19 10:27] LABS: ALB/GLOB Ratio 1.2 RATIO (0.9-2.4); AST(SGOT) 23 U/L (15-37); Alanine Aminotransfer ALT/SGPT 35 U/L (13-56); Albumin, Serum 3.8 g/dL (3.2-5.0); Alkaline Phosphatase 74 U/L (45-117); Anion Gap 3 (5-15); BUN 9 mg/dL (7-18); BUN/Creat Ratio 11.1 RATIO (10-20); Calcium,Total 9.4 mg/dL (8.5-10.1); Chloride 109 mmol/L (98-107); Cholesterol 197 mg/dL (200); Creatinine, Serum 0.81 mg/dL (0.55-1.02); EST Glomerular Filtration Rate 76 mL/min (>60); Est Glom Filt Rate - Afr Amer 92 mL/min (>60); Globulin 3.2 g/dL (2.2-4.2); Glucose 109 mg/dL (74-106); High Density Lipoprotein 57 mg/dL; Potassium 4.2 mmol/L (3.5-5.1); Sodium Level 142 mmol/L (136-145); Triglycerides 177 mg/dL; Very Low Density Lipoprotein 35 mg/dL (5-40)
== END | disposition home or self-care (01) ==
PROVIDERS: PCP Family Medicine; Referring Provider Family Medicine; Visit Provider Family Medicine
DX: Z00.00 Encounter for general adult medical examination without abnormal findings (principal); Z51.81 Encounter for therapeutic drug level monitoring
CPT/HCPCS: 36415; 80053; 80061; 85025

== ENCOUNTER → 2023-09-23 | Outpatient (CLI) | payer OTHER, SELFPAY ==
--- OUTSIDE RECORDS SUMMARY | 2023-09-23 14:07 | XMS RPT_ITS | CCD ---
Author Name Unknown Address [address] [place] [address] Organization [facility] Care Team Providers Care Harness Cleaner Name Role Phone Roxana Mcadams MD Unavailable [phone] Estuardo JIMÉNEZ, Brandon Wilkinson Unavailable [phone] Roxana Mcadams MD Unavailable [phone] Gerardo Soria MD Unavailable Allergies Allergy Classification Reported Allergen(s) Allergy Type Date of Onset Reaction(s) Facility (4 sources) codeine drug allergy 08-11-2009 [facility] (5 sources) Sulfonamides (Antibiotic); Translations: [SULFA] drug allergy 08-11-2009 [facility] (1 source) Codeine Drug Allergy 08-30-2020 [facility] Work Phone: Medications Completed/Discontinued Medications Medication Drug Class(es) Dates Sig (Normalized) Sig (Original) amoxicillin 875 mg / clavulanate 125 mg oral tablet (2 sources) Penicillin-class Antibacterial Start: 06-08-2017 End: 06-18-2017 AMOXICILLIN-POT CLAVULANATE 875-125 MG TABS Take 1 tab every 12 hours AMOXICILLIN-POT CLAVULANATE [id number] Brandon Marte PA-C ascorbic acid 1000 mg oral tablet (1 source) Vitamin C Start: 08-30-2020 take 1 tablet by mouth once daily VITAMIN C 1000 MG TABS 1 tablet by mouth once a day ascorbic acid (vitamin c) [id number] Dayana Bhandari AT atenolol 25 mg oral tablet (1 source) beta-Adrenergic Estrellita Start: 09-19-2021 take 1 tablet by mouth once daily ATENOLOL 25 MG TABS 1 tablet by mouth once a day atenolol [id number] Maryann Daniels [employer] bisoprolol fumarate 5 mg oral tablet (4 sources) beta-Adrenergic Estrellita Start: 02-01-2017 take 1 tablet by mouth once daily BISOPROLOL FUMARATE 5 MG TABS One tablet by mouth daily BISOPROLOL FUMARATE [id number] Roxana Mcadams MD 24 hr buPROPion hydrochloride 300 mg extended release oral tablet (4 sources) Aminoketone Start: 02-01-2017 take 1 tablet by mouth once daily WELLBUTRIN XL 300 MG [id number] One tablet by mouth daily BUPROPION HCL [id number] Roxana Mcadams MD Problems Active Problems Problem Classification Problem Date Documented Date Episodic/Chronic Other connective tissue disease (1 source) Presence of left artificial shoulder joint; Translations: [Shoulder joint replacement] Onset: 09-23-2020 09-23-2020 Chronic Other non-traumatic joint disorders (1 source) Other specific arthropathies, not elsewhere classified, left shoulder; Translations: [Arthropathy, unspecified, shoulder region] Onset: 09-06-2020 09-06-2020 Chronic Unclassified (3 sources) Gynecologic examination ; Translations: [Encounter for gynecological examination (general) (routine) without abnormal findings] Onset: 02-01-2017 02-01-2017 Unclassified (2 sources) Encounter for check-up ; Translations: [Encounter for general adult medical examination without abnormal findings] Onset: 04-04-2017 04-04-2017 Unclassified (1 source) Procedure carried out on subject; Translations: [Encounter for other screening for malignant neoplasm of breast] Onset: 02-01-2017 02-01-2017 Past or Other Problems Problem Classification Problem Date Documented Da te Episodic/Chronic Other bone disease and musculoskeletal deformities (4 sources) Osteopenia; Translations: [Other specified disorders of bone density and structure, unspecified site] Onset: 02-01-2017 02-01-2017 Episodic Other connective tissue disease (1 source) Complete rotator cuff tear or rupture of right shoulder, not specified as traumatic; Translations: [Complete rupture of rotator cuff] Onset: 12-07-2020 12-07-2020 Episodic Other connective tissue disease (1 source) Impingement syndrome of shoulder region; Translations: [Impingement syndrome of right shoulder] Onset: 2020 2020 Episodic Other eye disorders (4 sources) Excess skin of eyelid; Translations: [Dermatochalasis of unspecified eye, unspecified eyelid] Onset: 02-03-2008 08-11-2009 Episodic Other skin disorders (4 sources) Other specified disorders of the skin and subcutaneous tissue; Translations: [Other specified disorders of the skin and subcutaneous tissue] Onset: 02-03-2008 08-11-2009 Episodic Other upper respiratory infections (2 sources) Acute maxillary sinusitis; Translations: [Acute maxillary sinusitis, unspecified] Onset: 06-08-2017 06-08-2017 Episodic Unclassified (3 sources) Encounter for other screening for malignant neoplasm of breast; Translations: [Encounter for other screening for malignant neoplasm of breast] Onset: 02-01-2017 02-01-2017 Episodic Unclassified (1 source) Problem Results Test Name Value Interpretation Reference Range Facil ity Vital Signs Date Time Vital Sign Value Performing Clinician Facility 06-08-2017 10:08-0500 BMI (Body Mass Index) 28.55 kg/m2 Brandon Marte PA-C [facility] Work Phone: 06-08-2017 10:08-0500 Body Temperature 98.4 [degF] Brandon Marte PA-C [facility] Work Phone: 06-08-2017 10:08-0500 BP Diastolic 64 mm[Hg] Brandon Marte PA-C [facility] Work Phone: 06-08-2017 10:08-0500 BP Systolic 122 mm[Hg] Brandon Marte PA-C [facility] Work Phone: 06-08-2017 10:08-0500 Height 160.02 cm Brandon Marte PA-C [facility] Work Phone: 06-08-2017 10:08-0500 Pulse (Heart Rate) 89 /min Brandon Marte PA-C [facility] Work Phone: 06-08-2017 10:08-0500 Respiratory Rate 14 /min Brandon Marte PA-C [facility] Work Phone: 06-08-2017 10:08-0500 Weight 73.12 kg Brandon Marte PA-C [facility] Work Phone: 02-01-2017 16:22-0400 BMI (Body Mass Index) 28.27 kg/m2 Roxana Mcadams MD [facility] 02-01-2017 16:22-0400 Body Temperature 98.5 [degF] Roxana Mcadams MD [facility] 02-01-2017 16:22-0400 Body Temperature 98.49 [degF] Roxana Mcadams MD [facility] 02-01-2017 16:22-0400 BP Diastolic 83 mm[Hg] Roxana Mcadams MD [facility] 02-01-2017 16:22-0400 BP Systolic 120 mm[Hg] Roxana Mcadams MD [facility] 02-01-2017 16:22-0400 Height 160.02 cm Roxana Mcadams MD [facility] 02-01-2017 16:22-0400 Pulse (Heart Rate) 74 /min Roxana Mcadams MD [facility] 02-01-2017 16:22-0400 Respiratory Rate 16 /min Roxana Mcadams MD [facility] 02-01-2017 16:22-0400 Weight 72.39 kg Roxana Mcadams MD [facility] 02-03-2008 10:06-0400 BSA (Body Surface Area) 1.69 m2 Roxana Mcadams MD [facility] NEGATED: Highlighted [id number] 11:04-0500 Body height 160.02 cm Dayana Saulkris AT [facility] Work Phone: NEGATED: Highlighted [id number] 11:04-0500 Body height 160 cm Dayana Saulkris AT [facility] Work Phone: NEGATED: Highlighted [id number] 11:04-0500 Body mass index (BMI) [Ratio] 28.45 kg/m2 Dayana Bhandari AT [facility] Work Phone: NEGATED: Highlighted [id number] 11:04050 Body weight 72.58 kg Dayana Bhandari AT [facility] Work Phone: NEGATED: Highlighted [id number] 11:[id number] Body weight 73 kg Dayana Bhandari AT [facility] Work Phone: Procedures Date Procedure Procedure Detail Performing Clinician Start: 09-19-2021 End: 09-19-2021 BP scrn no perf at interval Gerardo Soria MD Work Phone: Start: 09-19-2021 End: 09-19-2021 Calc BMI abv up osmany f/u Gerardo Soria MD Work Phone: Start: 09-19-2021 End: 09-19-2021 Current tobacco non-user cad cap copd pv dm Gerardo Soria MD Work Phone: Start: 09-19-2021 End: 09-19-2021 Docrev cur meds by [facility] Gerardo Soria MD Work Phone: Start: 09-19-2021 End: 09-19-2021 Pain neg no plan Gerardo Soria MD Work Phone: Start: 09-19-2021 End: 09-19-2021 Patient encounter procedure Gerardo Soria MD Work Phone: Start: 04-04-2017 End: 04-04-2017 [facility] Alex[facility] Wilkinson Work Phone: Start: 02-01-2017 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 Work Phone: Start: 06-08-2017 End: 06-08-2017 Appointment Appointment [facility] Work Phone: Start: 02-01-2017 End: 02-01-2017 Appointment Appointment [facility] Start: 02-01-2017 End: 02-01-2017 DEXA scan DEXA scan [facility] Work Phone: Start: 02-01-2017 End: 02-01-2017 Mammogram, screening Mammogram-Bilateral, Screening, Bilateral [facility] Work Phone: Start: 02-01-2017 End: 02-01-2017 DEXA scan DEXA scan [facility] Start: 02-01-2017 End: 02-01-2017 Mammogram, screening Mammogram-Bilateral, Screening, Bilateral [facility] Social History Date Type Detail Facility Start: 09-19-2021 End: 09-19-2021 Assertion Unknown if ever smoked [facility] Work Phone: Evaluation note Note Date & Type Note Facility Evaluation note There may be informa tion available, but it has not been provided by the sender. [facility] Work Phone: Instructions Note Date & Type Note Facility [facility] Work Phone: Chief Complaint Chief Complaint Description Start Date left shoulder post Left reve rse total shoulder on 09/19/2020 Preliminary chief co mplaint data, not yet signed by the author as of Advance Directives There may be information available, but it has not been provided by the sender. Family History There may be information available, but it has not been provided by the sender. Additional Source Comments Reason for Visit (unrecogniz ed section and content) FOR RECORDS PERTAINING TO PATIENTS WHO ARE OR HAVE BEEN ENROLLED IN A CHEMICAL DEPENDENCY/SUBSTANCEABUSE PROGRAM, SOME INFORMATION MAY BE OMITTED. This clinical summary was aggregated from multiple sources. Caution should be exercised in using it in the provision of clinical care. This summary normalizes information from multiple sources, and as a consequence, information in this document may materially change the coding, format and clinical context of patient data. In addition, data may be omitted in some cases. CLINICAL DECISIONS SHOULD BE BASED ON THE PRIMARY CLINICAL RECORDS. [facility]. provides no warranty or guarantee of the accuracy or completeness of information in this document.
[2023-09-27 04:07] LABS: HPV APTIMA, High Risk Positive (Negative); HPV Genotype 16, Aptima Negative (Negative); HPV Genotype 18,45 Aptima Negative (Negative)
== END | disposition home or self-care (01) ==
PROVIDERS: PCP Family Medicine; Referring Provider Nurse Practitioner Women's Health; Visit Provider Nurse Practitioner Women's Health
DX: Z12.4 Encounter for screening for malignant neoplasm of cervix (principal)
CPT/HCPCS: 87624; 88175; G0145

== ENCOUNTER → 2023-09-24 | Outpatient (CLI) | payer OTHER, SELFPAY ==
--- NOTE | 2023-09-24 15:26 | BI_ITS ---
MAMMOGRAPHY - BILATERAL SCREENING REASON FOR EXAM: Female, 62 years old. Routine annual screening examination. PERTINENT HISTORY: Non-contributory. TECHNIQUE: Digital bilateral breast jolanta (3D mammographic acquisition) in the CC and MLO projections. 2-D mediolateral oblique (MLO) and craniocaudad (CC) views of both breasts were obtained. CAD: Full Field Digital Mammography with Computer Added Detection was performed. COMPARISON: Comparison is made with prior study dated September 17, 2022 and August 17, 2020. FINDINGS: Breast Composition: The breasts are extremely dense, which lowers the sensitivity of mammography. There are no dominant masses or suspicious calcifications. Stable small benign-appearing bilateral axillary lymph nodes. No other significant abnormalities are identified. There has been no significant change since the prior study. BI/SCRN MAMM (CAD)W/JOLANTA BILAT IMPRESSION: Stable bilateral screening mammogram. Yearly follow-up mammogram recommended. (A) ASSESSMENT CATEGORY: BIRADS Category 2: Benign. A letter regarding these results will be sent to the patient by the facility within 30 days. Approximately 10% of breast cancers are not detected by mammography. A normal mammogram should not delay biopsy of a clinically suspicious abnormality. [id number] Electronically Signed: Allen Jay MD at 10:58 EDT ,
== END | disposition home or self-care (01) ==
LOC: OPBI 16:10
PROVIDERS: PCP Family Medicine; Referring Provider Nurse Practitioner Women's Health; Visit Provider Nurse Practitioner Women's Health
DX: Z12.31 Encounter for screening mammogram for malignant neoplasm of breast (principal)
CPT/HCPCS: 77063; 77067

== ENCOUNTER → 2023-11-12 | Outpatient (CLI) | payer MEDICARE, SELFPAY | END | disposition home or self-care (01) | LOC: SL 19:59 | PROVIDERS: PCP Family Medicine; Referring Provider Nurse Practitioner Acute Care; Visit Provider Nurse Practitioner Acute Care | DX: G47.33 Obstructive sleep apnea (adult) (pediatric) (principal) | CPT/HCPCS: 95810 ==

== ENCOUNTER → 2024-05-14 | Outpatient (CLI) | payer MEDICARE, SELFPAY ==
--- OUTSIDE RECORDS SUMMARY | 2024-05-14 11:03 | XMS RPT_ITS | CCD ---
Author Organization [facility] Care Team Providers Care Store Manager Name Role Phone Roxana Mcadams MD Unavailable [phone] Estuardo JIMÉNEZ, Brandon Wilkinson Unavailable Roxana cMadams MD Unavailable [phone] Gerardo Soria MD Unavailable Allergies Allergy Classification Reported Allergen(s) Allergy Type Date of Onset Reaction(s) Facility (4 sources) codeine drug allergy 08-11-2009 [facility] (5 sources) Sulfonamides (Antibiotic); Translations: [SULFA] drug allergy 08-11-2009 [facility] (1 source) Codeine Drug Allergy 08-30-2020 [facility] Work Phone: Medications Completed/Discontinued Medications Medication Drug Class(es) Dates Sig (Normalized) Sig (Original) amoxicillin 875 mg / clavulanate 125 mg oral tablet (2 sources) Penicillin-class Antibacterial Start: 06-08-2017 End: 06-18-2017 AMOXICILLIN-POT CLAVULANATE 875-125 MG TABS Take 1 tab every 12 hours AMOXICILLIN-POT CLAVULANATE [id number] Brandon Marte PA-C ascorbic acid 1000 mg oral tablet (1 source) Vitamin C Start: 08-30-2020 take 1 tablet by mouth once daily VITAMIN C 1000 MG TABS 1 tablet by mouth once a day ascorbic acid (vitamin c) [id number] Dayana Bhandari AT atenolol 25 mg oral tablet (1 source) beta-Adrenergic Estrellita Start: 09-19-2021 take 1 tablet by mouth once daily ATENOLOL 25 MG TABS 1 tablet by mouth once a day atenolol [id number] Maryann Corsaro DECK ENGINEER bisoprolol fumarate 5 mg oral tablet (4 sources) beta-Adrenergic Estrellita Start: 02-01-2017 take 1 tablet by mouth once daily BISOPROLOL FUMARATE 5 MG TABS One tablet by mouth daily BISOPROLOL FUMARATE [id number] Roxana Mcadams MD 24 hr buPROPion hydrochloride 300 mg extended release oral tablet (4 sources) Aminoketone Start: 02-01-2017 take 1 tablet by mouth once daily WELLBUTRIN XL 300 MG [id number] One tablet by mouth daily BUPROPION HCL [id number] Roxana Mcadams MD Start: 02-01-2017 take 1 tablet by aakash th once daily WELLBUTRIN XL 300 MG [id number] One tablet by mouth daily BUPROPION HCL [id number] Roxana Mcadams MD Calcium (1 source) Phosphate Binder, Calcium Start: 09-19-2021 CALCIUM 1200 mg D 3 TABS 1 tablet by mouth once a day CALCIUM Maryann Corsaro DECK ENGINEER ozxxklpw-qzi-rbhi- fa-lutein (1 source) Start: 09-19-2021 take 1 tablet by mouth once daily Centrum Silver Women 1 tablet by mouth once a day wuiiqvtu-krz-aowg -fa-lutein Maryann Corsaro DECK ENGINEER Sertraline (5 sources) Serotonin Reuptake Inhibitor Start: 09-19-2021 take 1 capsule by mouth once daily sertraline hcl 150mg 150mg 1 capsule by mouth once a day sertraline hcl 150mg 150mg Maryann Corsaro DECK ENGINEER Start: 02-01-2017 take 1 tablet by aakash th once daily ZOLOFT 100 MG TABS One tablet by mouth daily SERTRALINE HCL [id number] Roxana Mcadams MD SUMAtriptan 100 mg oral tablet (4 sources) Serotonin-1b and Serotonin-1d Receptor Agonist IMITREX 100 MG TABS as needed SUMATRIPTAN SUCCINATE [id number] Edwige Moore Problems Active Problems Problem Classification Problem Date [...] Results Test Name Value Interpretation Reference Range Facility Clinical Summary: Erick canela 09-19-2021 MC75 OP Visit Invalid Interpretation Code [facility] Work Phone: Clinical Summary: Harriet Krauseon 09-18-2021 cause of , mother Copd, mursa Invalid Interpretation Code [facility] Work Phone: Data entered by patient, allergy list Codeine Sulfa drugs Invalid Interpretation Code [facility] Work Phone: data entered by patient, Employer Name retired Invalid Interpretation Code [facility] Work Phone: Data entered by patient, history of past surgeries section Shoulder replacement - total Shoulder surgery other Wrist surgery Invalid Interpretation Code [facility] Work Phone: Data entered by patient, medication list sertraline [id number]-Once daily Fysvgvsw-01ts-7-O nce daily Centrum silver-Unknown Sqhpizsk-7-Muatl Vitamin [id number]-Daily Calcium-1200mg plus D3 [id number]-Scgrz Invalid Interpretation Code [facility] Work Phone: data entered by patient, mother's medical history COPD Osteoporosis Invalid Interpretation Code [facility] Work Phone: data entered by patient, past medical history Anxiety Depression Fibromyalgia Obstructive sleep apnea Osteopenia Invalid Interpretation Code [facility] Work Phone: data entered by patient, social history, marital status single Invalid Interpretation Code [facility] Work Phone: Housing Type: apartment, house, half-way, trailer, none house Invalid Interpretation Code [facility] Work Phone: housing unit size (asthma environmental history, housing) (from single family to don't know) 1 floor Invalid Interpretation Code [facility] Work Phone: mother of patient is alive or Invalid Interpretation Code [facility] Work Phone: mother's medical history, comments Narcolepsy Invalid Interpretation Code [facility] Work Phone: Number of dependent children No Invalid Interpretation Code [facility] Work Phone: Web entered surgical history comments Left tube & ovary removed due to a cyst C2/3 fused on their own. No surgery Invalid Interpretation Code [facility] Work Phone: Office Visit: UC: sinusitiso n 06-08-2017 Documentation of current medications (procedure) Done Invalid Interpretation Code [facility] Work Phone: Fall risk assessment No Invalid Interpretation Code [facility] Work Phone: Tobacco smoking status FLIS Never Invalid Interpretation Code [facility] Work Phone: Tobacco use [facility] Never smoker Invalid Interpretation Code [facility] Work Phone: Office Visit: est annualon 0 02-01-2017 Documentation of current medications (procedure) Done Invalid Interpretation Code [facility] Protein mass conc Done [facility] Tobacco smoking status NHIS Never Invalid Interpretation Code [facility] Tobacco smoking status FLIS Never smoker [facility] Tobacco use [facility] Never smoker Invalid Interpretation Code [facility] Office Visit: est annualon 0 03-04-2015 General categories Cyto stain Interp (Cervical or vaginal smear or scraping) Normal Invalid Interpretation Code [facility] Vital Signs Date Time Vital Sign Value Performing Clinician Facility 06-08-2017 10:08-0500 BMI (Body Mass Index) 28.55 kg/m2 Brandon Marte PA-C [facility] Work Phone: 06-08-2017 10:08-0500 Body Temperature 98.4 [degF] Brandon Marte PA-C [facility] Work Phone: 06-08-2017 10:08-0500 BP Diastolic 64 mm[Hg] Brandon Marte PA-C [facility] Work Phone: 06-08-2017 10:08-0500 BP Systolic 122 mm[Hg] Brandon MARTÍNEZC [facility] Work Phone: 06-08-2017 10:08-0500 Height 160.02 cm Brandon STOREY-C [facility] Work Phone: 06-08-2017 10:08-0500 Pulse (Heart Rate) 89 /min Brandon MARTÍNEZC [facility] Work Phone: 06-08-2017 10:08-0500 Respiratory Rate 14 /min Brandon STOREY-C [facility] Work Phone: 06-08-2017 10:08-0500 Weight 73.12 kg Brandon MARTÍNEZC [facility] Work Phone: 02-01-2017 16:22-0400 BMI (Body Mass Index) 28.27 kg/m2 Roxana Mcadams MD [facility] 02-01-2017 16:22-0400 Body Temperature 98.5 [degF] Roxana Mcadams MD [facility] 02-01-2017 16:22-0400 Body Temperature 98.49 [degF] Roxana Mcadams MD [facility] 02-01-2017 16:22-0400 BP Diastolic 83 mm[Hg] Roxana Mcadams MD [facility] 02-01-2017 16:22-0400 BP Systolic 120 mm[Hg] Roxana Mcadams MD [facility] 02-01-2017 16:22-0400 Height 160.02 cm Roxana Mcadams MD [facility] 02-01-2017 16:22-0400 Pulse (Heart Rate) 74 /min Roxana Mcadams MD [facility] 02-01-2017 16:22-0400 Respiratory Rate 16 /min Roxana Mcadams MD [facility] 02-01-2017 16:22-0400 Weight 72.39 kg Roxana Mcadams MD [facility] 02-03-2008 10:06-0400 BSA (Body Surface Area) 1.69 m2 Roxana Mcadams MD [facility] [place] NEGATED: Highlighted [id number] 11:04-0500 Body height 160.02 cm Dayana Bhandari AT [facility] Work Phone: NEGATED: Highlighted [id number] 11:04-0500 Body height 160 cm Dayana Bhandari AT [facility] Work Phone: NEGATED: Highlighted [id number] 11:04-0500 Body mass index (BMI) [Ratio] 28.45 kg/m2 Dayana Bhandari AT [facility] Work Phone: NEGATED: Highlighted [id number] 11:04-0500 Body weight 72.58 kg Dayana Bhandari AT [facility] Work Phone: NEGATED: Highlighted [id number] 11:04-0500 Body weight 73 kg Dayana Bhandari AT [facility] Work Phone: Procedures Date Procedure Procedure [...] 09-19-2021 End: 09-19-2021 Docrev cur meds by elig clin Gerardo Soria MD Work Phone: Start: 09-19-2021 End: 09-19-2021 Pain neg no plan Gerardo Soria MD Work Phone: Start: 09-19-2021 End: 09-19-2021 Patient encounter procedure Gerardo Soria MD Work Phone: Start: 04-04-2017 End: 04-04-2017 [facility] Alexys Espinoza Parvez Amador Minh Work Phone: Start: 02-01-2017 Gynecologic examination Psychiatric Assistant annual e xam Roxana Mcadams MD NEGATED: Highlighted rowStart: 09-19-2021 End: 09-19-2021 Documentation of current medications Dayana Bhandari AT Plan of Treatment Date Care Activity Detail Author Start: 09-19-2022 End: 09-19-2021 Radex shoulder complete minimum 2 views XR SHOULDER 2 VWS-LT [facility] Work Phone: Start: 09-19-2021 End: 09-19-2021 Patient encounter procedure Appointment [facility] Work Phone: Start: 06-08-2017 End: 06-08-2017 Appointment Appointment [facility] Work Phone: Start: 02-01-2017 End: 02-01-2017 Appointment Appointment [facility] [place] Start: 02-01-2017 End: 02-01-2017 DEXA scan DEXA scan [facility] Work Phone: Start: 02-01-2017 End: 02-01-2017 Mammogram, screening Mammogram-Bilateral, Screening, Bilateral [facility] Work Phone: Start: 02-01-2017 End: 02-01-2017 DEXA scan DEXA scan [facility] Start: 02-01-2017 End: 02-01-2017 Mammogram, screening Mammogram-Bilateral, Screening, Bilateral [facility] Social History Date Type Detail Facility Start: 09-19-2021 End: 09-19-2021 Assertion Unknown if ever smoked [facility] Work Phone: Evaluation note Note Date & Type Note Facility Evaluation note There may be informa tion available, but it has not been provided by the sender. [facility] Work Phone: Instructions Note Date & Type Note Facility Instructions CompletedPatient advised to follow-up with Primary Care Physician for BMI management. [facility] Work Phone: Chief Complaint Chief Complaint [...] for Visit (unrecogniz ed section and content) Reason For Visit Description Postop - subsequent visit Preliminary reason f or visit data, not yet signed by the author as of left shoulder post Left reve rse total shoulder on 09/19/2020 FOR RECORDS PERTAINING TO PATIENTS WHO ARE [...] BE BASED ON THE PRIMARY CLINICAL RECORDS. [employer] provides no warranty or guarantee of the accuracy or completeness of information in this document.
[2024-05-14 12:20] LABS: Erythrocyte Sedimentation Rate 1 mm/hr (0-30)
[2024-05-14 12:32] LABS: Absolute Neutrophil Count 4.4 X10^3/uL (2.0-7.7); Basophil# 0.03 X10^3/uL; Basophil% 0.4 % (0-1); Eosinophil# 0.17 X10^3/uL; Eosinophils% 2.5 % (0-5); Hematocrit 40.3 % (37-47); Hemoglobin 13.8 g/dL (12.0-15.0); Lymphocyte % 22.4 % (19-41); Mean Corp Hgb Conc 34.2 g/dL (32-36); Mean Corpuscular Hgb 31.3 pg (27.0-32.0); Mean Corpuscular Volume 91.4 fL (81-99); Mean Platelet Vol. 9.8 fl (6.2-12.0); Monocyte# 0.57 X10^3/uL; Monocyte% 8.5 % (0-10); NRBC Flagged by Analyzer 0 % (0-5); Neutrophil # 4.41 X10^3/uL (2.7-7.7); Neutrophil % 65.8 % (47-70); Platelet Count 224 K/mm3 (150-450); RBC Distribution Width CV 12.6 % (11.6-14.6); RBC Distribution Width SD 41.8 fl (35.1-43.9); Red Blood Count 4.41 M/mm3 (4.2-5.4); White Blood Count 6.7 K/mm3 (4.4-11.0)
[2024-05-14 13:06] LABS: ALB/GLOB Ratio 1.3 RATIO (0.9-2.4); AST(SGOT) 18 U/L (15-37); Alanine Aminotransfer ALT/SGPT 24 U/L (13-56); Albumin, Serum 3.9 g/dL (3.2-5.0); Alkaline Phosphatase 71 U/L (45-117); Anion Gap 5 (5-15); BUN 14 mg/dL (7-18); BUN/Creat Ratio 17.5 RATIO (10-20); CRP 3.01 mg/L (0.0-3.0); Calcium,Total 9.4 mg/dL (8.5-10.1); Chloride 109 mmol/L (98-107); Cholesterol 226 mg/dL (200); EST Glomerular Filtration Rate 76 mL/min (>60); Est Glom Filt Rate - Afr Amer 92 mL/min (>60); Glucose 112 mg/dL (74-106); High Density Lipoprotein 62 mg/dL; Potassium 4.4 mmol/L (3.5-5.1); Protein, Total 6.9 g/dL (6.4-8.2); Sodium Level 141 mmol/L (136-145); Triglycerides 162 mg/dL; Very Low Density Lipoprotein 32 mg/dL (5-40)
== END | disposition home or self-care (01) ==
PROVIDERS: PCP Family Medicine; Referring Provider Family Medicine; Visit Provider Family Medicine
DX: Z51.81 Encounter for therapeutic drug level monitoring (principal); E78.5 Hyperlipidemia, unspecified; M25.50 Pain in unspecified joint
CPT/HCPCS: 36415; 80053; 80061; 85025; 85652; 86140

== ENCOUNTER → 2024-05-18 | Outpatient (CLI) | payer MEDICARE, BC, SELFPAY ==
--- NOTE | 2024-05-18 07:56 | AAAS_ITS ---
Reason For Study: Screening Aorta Measurements Aorta Doppler Measurements Proximal aorta measures1.70cm x 1.66cm. in cross- Peak systolic flow velocities within the proximal sectional axis. aorta measure 107 cm/sec. Proximal aorta measures1.85cm. in longitudinal Peak systolic flow velocities within the mid aorta axis. measure 80 cm/sec. Mid aorta measures1.60cm x 1.74cm. in cross- Peak systolic flow velocities within the distal sectional axis. aorta measure 105 cm/sec. Mid aorta measures1.56cm. in longitudinal axis. Distal aorta measures1.37cm x 1.43cm. in cross- sectional axis. Distal aorta measures1.41cm. in longitudinal axis. Left Iliac Artery Left iliac artery measures 0.83cm x 0.92 cm. in the cross-sectional axis. Left iliac artery measures 0.80 cm. in the longitudinal axis. Peak systolic velocity in the left iliac artery measures 100 cm/sec. Right Iliac Artery Right iliac artery measures 0.85cm x 0.85 cm. in the cross-sectional axis. Right iliac artery measures 0.92 cm. in the longitudinal axis. Peak systolic velocity in the right iliac artery measures 76 cm/sec. Procedure Aorta IVC Iliac vasculature or bypass grafts [id number]. Exam performed in department. VL/AAA Screening Interpretation Summary The dimensions of the intra-abdominal aorta are normal, without evidence of ane urysmal dilatation. The iliac arteries also appear normal in caliber bilaterally. The intra-abdomin al aorta and iliac arteries appear patent, demonstrating normal, pulsatile arterial flow and ava l peak systolic velocities. Ordering Physician: Gertrudis Cruz Referring Physician: Gertrudis Cruz Performed By: Carleen Nair, RDCS, RVT
== END | disposition home or self-care (01) ==
PROVIDERS: PCP Family Medicine; Referring Provider Family Medicine; Visit Provider Family Medicine
DX: Z13.6 Encounter for screening for cardiovascular disorders (principal); Z82.49 Family history of ischemic heart disease and other diseases of the circulatory system
CPT/HCPCS: 76706

== ENCOUNTER → 2024-06-01 | Outpatient (CLI) | payer MEDICARE, BC, SELFPAY ==
--- NOTE | 2024-06-01 15:12 | US_ITS ---
STUDY: THYROID ULTRASOUND REASON FOR EXAM: Female, 63 years old. Dysphagia TECHNIQUE: Ultrasound evaluation of the thyroid was performed with real-time and static mora-scale imaging. COMPARISON: None. FINDINGS: RIGHT LOBE: The right lobe of the thyroid gland measures 3.9 x 1.1 x 1.4 cm. There is a homogeneous echotexture. There are no demonstrated solid, cystic or complex lesions. LEFT LOBE: The left lobe of the thyroid gland measures 3.6 x 1.0 x 1.0 cm. There is a homogeneous echotexture. There are no demonstrated solid, cystic or complex lesions. ISTHMUS: The isthmus measures 1 mm thick. . The regional lymph nodes are normal. US/Thyroid IMPRESSION: Normal ultrasound examination of the thyroid. Electronically Signed: Asher Crowley MD at 8:54 EST ,
== END | disposition home or self-care (01) ==
LOC: US 15:11
PROVIDERS: PCP Family Medicine; Referring Provider Surgery; Visit Provider Surgery
DX: E01.0 Iodine-deficiency related diffuse (endemic) goiter (principal)
CPT/HCPCS: 76536

== ENCOUNTER → 2024-06-10 | Outpatient (CLI) | payer MEDICARE, BC, SELFPAY ==
--- NOTE | 2024-06-10 10:47 | BD_ITS ---
STUDY: DUAL ENERGY X-RAY ABSORPTIOMETRY / DXA REASON FOR EXAM: Female, 63 years old. M81.0 TECHNIQUE: Bone Mineral Density (BMD) measurements of lumbar spine and bilateral hips were obtained. COMPARISON: Comparison is made with prior study dated April 02, 2017. FINDINGS: Lumbar Spine (L1-L4): g/cm2 (0.752) / T-score (-3.2) / Z-score (-1.3) Findings are suggestive of osteoporosis with a high fracture risk. Left Femur Total: g/cm2 (0.720) / T-score (-1.8) / Z-score (-0.6) Left Femoral Neck: g/cm2 (0.534) / T-score (-2.8) / Z-score (-1.3) Right Femur Total: g/cm2 (0.738) / T-score (-1.7) / Z-score (-0.4) Right Femoral Neck: g/cm2 (0.583) / T-score (-2.4) / Z-score (-0.9) The T-Scores on the most recent prior examination were: Lumbar Spine (L1-L4): There has been worsening of bone density since the previous examination. Left Femur Total: which represents a worsening of 4.5%. Right Femur Total: which represents no significant change. . BD/Dexa Bone Density Study IMPRESSION: The patient is considered osteoporotic as outlined below according to World Ignacio Organization (WHO) criteria with a moderate fracture risk. There has been worsening of bone density since the previous examination. Reference Information: The T-score is the number of standard deviations above or below the standard which is normal for young adults at their peak bone mineral density. The World Health Organization (WHO) interprets the T-scores as follows: Above -1 Normal bone density Between -1 and -2.5 Osteopenia Equal to / or below -2.5 Osteoporosis As a practical clinical guideline, osteopenia may be graded as follows: Mild -1 through -1.5 Moderate -1.6 through -2.0 Severe -2.1 through -2.4 The Z-score is the number of standard deviations above or below age-matched controls. A Z-score of less than -1.5 would be considered abnormal. References: 1. NIH Osteoporosis and Related Bone Diseases www osteo.org 2. International Society for Clinical Densitometry www iscd.org 3. National Osteoporosis Foundation www nof.org Electronically Signed: Allen Jay MD at 12:30 EST ,
== END | disposition home or self-care (01) ==
LOC: OPBD 10:40
PROVIDERS: PCP Family Medicine; Referring Provider Family Medicine; Visit Provider Family Medicine
DX: M81.0 Age-related osteoporosis without current pathological fracture (principal)
CPT/HCPCS: 77080

== ENCOUNTER 2024-08-06 08:53 | Day surgery (SDC) | payer MEDICARE, BC, SELFPAY ==
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
[2024-08-06] VITALS (7 sets, daily range): BP systolic 84–120; BP diastolic 50–70; PULSE 65–109; RESP 16; TEMP 36.2–36.6; O2SAT 92–97; BMI 26.9
--- NOTE | 2024-08-06 | GASB_PTH ---
PATIENT: GERTRUDIS ARELLANO LOC: EN U#:[id number] AGE/SX: 63/F ROOM: RE08/06/[address]: Dr. Ghassan Olson MD : 1960 BED: DIS: 08/06/2024 SPEC #: [id number] RECD: 08/06/24 13:32 STATUS: ARNALDO [place] #: [id number] SHAMEKA: 08/06/24 00:[address]: Ghassan Olson DEPT: SURGICAL PATHOLOGY RECD BY: Sarthak Parsons ENTERED: 08/06/24 13:34 SP TYPE: Gastric Bx OTHR DR: Dr. Gertrudis Cruz DO Tissues: A - Gastric mucous membrane B - Stomach, NOS C - Gastric mucous membrane D - Esophagus, NOS E - Esophageal mucous membrane F - Gastric mucous membrane Procedures: Special Stain Group I Surgery Specimen Level IV GMS Stain (control) HEADER OPERATION: EGD with biopsy PRE-OP DIAGNOSIS: Dysphagia TISSUE SUBMITTED: A- Gastric body mucosa biopsy, B- Greater curvature biopsy, C- Gastric body polyp biopsy, D- Distal esophagus biopsy, E- Mid esophageal plaque biopsy, F- Antrum biopsy MICROSCOPIC DIAGNOSIS A. Gastric body mucosa, biopsy: Mild gastritis. See microscopic description. B. Greater curvature, biopsy: Mild gastritis. See microscopic description. C. Gastric body polyp, biopsy: Fragments of gastric mucosa with mild chronic inflammation. See comment. D. Distal esophagus, biopsy: Fragments of benign squamous epithelium. E. Mid esophageal plaque, biopsy: Fragments of benign squamous epithelium. See comment. F. Antrum, biopsy: Mild gastritis. See microscopic description and comment. 08/07/2024 COMMENT C. Changes consistent with fundic gland polyp or hyperplastic/inflammatory polyp are not seen. E. Special stain for fungi is negative for organisms; matched control is appropriate. F. The results of immunohistochemistry for Helicobacter pylori will be reported separately ([id number]). MICROSCOPIC DESCRIPTION Slides are reviewed. A, B & F. The specimen shows fragments of gastric mucosa with chronic inflammatory cell infiltrates in the lamina propria consisting of lymphocytes and plasma cells, consistent with mild chronic gastritis. GROSS DESCRIPTION A. Received in fixative is one container labeled with the patient's name and designated Gastric body mucosa biopsy. The specimen consists of multiple irregular fragments of light medeiros soft tissue that in aggregate measure 1.2 x 0.2 x 0.1 cm. The specimen is totally submitted in one cassette. B. Received in fixative is one container labeled with the patient's name and designated Greater curvature biopsy. The specimen consists of two irregular fragments of light medeiros soft tissue that measures 0.5 x 0.3 x 0.1 cm. The specimen is totally submitted in one cassette. C. Received in fixative is one container labeled with the patient's name and designated Gastric body polyp biopsy. The specimen consists of one irregular fragment of light medeiros soft tissue that measures 0.4 x 0.3 x 0.1 cm. The specimen is totally submitted in one cassette. D. Received in fixative is one container labeled with the patient's name and designated Distal esophageal plaque biopsy. The specimen consists of two irregular fragments of light medeiros soft tissue that in aggregate measure 0.6 x 0.2 x 0.1 cm. The specimen is totally submitted in one cassette. E. Received in fixative is one container labeled with the patient's name and designated Mid esophageal plaque biopsy. The specimen consists of multiple irregular fragments of light medeiros soft tissue that in aggregate measure 1.5 x 0.2 x 0.1 cm. The specimen is totally submitted in one cassette. F. Received in fixative is one container labeled with the patient's name and designated Antrum biopsy. The specimen consists of multiple irregular fragments of light medeiros soft tissue that in aggregate measure 0.3 x 0.2 x 0.1 cm. The specimen is totally submitted in one cassette. SJ 08/06/2024 TC:3 CPT:[id number]
--- NOTE | 2024-08-06 10:00 | IMM_PTH ---
PATIENT: GERTRUDIS ARELLANO LOC: EN U#:[id number] AGE/SX: 63/F ROOM: RE08/06/[address]: Dr. Ghassan Olson MD : 1960 BED: DIS: 08/06/2024 SPEC #: [id number] RECD: 08/06/24 14:18 STATUS: ARNALDO REQ #: [id number] SHAMEKA: 08/06/24 10:[address]: Ghassan Olson DEPT: IMMUNOHISTOCHEMISTRY RECD BY: Jeferson Elizabeth ENTERED: 08/06/24 14:19 SP TYPE: IMMUNO OTHR DR: Dr. Gertrudis Cruz DO Tissues: F - Gastric mucous membrane Procedures: H Pylori (initial) PHYSICIAN & INSTITUTION [place] [id number] SPECIMEN INFORMATION: Tissue Source: F- Antrum biopsy Clinical Info: Dysphagia Specimen Number: [id number] CPT code: 30231 METHODOLOGY: Deparaffinized sections of prefer/formalin-fixed tissue or PAP/DQ stained slides are incubated with monoclonal/polyclonal antibodies/oligonucleotide probes. Localization is made via biotin free immunoperoxidase method. Appropriate controls are performed and reacted as expected. Results on target cell population are indicated in the following table: RESULTS: ANTIBODY / CLONE RESULT Block F H Pylori (polyclonal) negative These tests were developed and their performance characteristics determined by [facility]. They may not have been cleared or approved by the U.[place]. Food and Drug Administration. The FDA has determined that such clearance or approval is not necessary. The above immunohistochemical/dualISH markers are ordered and reviewed by the Pathologist. INTERPRETATION: B. Antrum, biopsy: Negative for Helicobacter pylori organisms. 08/07/2024
--- NOTE | 2024-08-06 10:02 | PRE.ANES_ITS ---
ASA Classification* ASA Classification ASA Classification: 2 Assessment & Plan Anesthesia* Anesthesia Assessment Anesthesia Assessment: Discussed sedation and/or anesthesia options, risks, benefits, and alternatives with patient/parents/legal guardian/POA. Questions invited. The patient/parents/legal guardian/POA seems to understand and agrees to proceed with anesthesia plan. Reviewed the physical assessment, medical history, allergy history and patient home medications list prior to surgery/procedure/anesthetic and documented any changes. Performed airway and anesthesia risk assessments. Anesthesia Type Anesthesia Type: MAC History Source History Obtained from:: Patient and Chart Anesthesia Focused Assessment* Temperature: 97.1 F Pulse Rate: 65 Blood Pressure: 120/70 Respiratory Rate: 16 Pulse Ox: 97 Oxygen Delivery Method: Room Air Airway Assessment Mouth opens: >3 cm Mallampati Score: II Teeth Condition: Caps/Crowns (Patient has 2 crowns on left lower molars. They are tight.) Neck Range of motion (ROM): Limited ROM (Slight decrease in extension from cervical fusion of L2-L3) Focused Labs Anesthesia Preop lab: CBC WBC 6.7 K/mm3 (4.4-11.0) 05/14/24 09:54 RBC 4.41 M/mm3 (4.2-5.4) 05/14/24 09:54 Hgb 13.8 g/dL (12.0-15.0) 05/14/24 09:54 Hct 40.3 % (37-47) 05/14/24 09:54 Plt Count 224 K/mm3 (150-450) 05/14/24 09:54 CHEMISTRY Potassium 4.4 mmol/L (3.5-5.1) 05/14/24 09:54 Sodium 141 mmol/L (136-145) 05/14/24 09:54 Phosphorus 4.0 mg/dL (2.5-4.9) 11/28/18 07:15 BUN 14 mg/dL (7-18) 05/14/24 09:54 Creatinine 0.80 mg/dL (0.55-1.02) 05/14/24 09:54 Glucose 112 mg/dL (74-106) H 05/14/24 09:54 COAG Pre-Assessment Diagnosis/Proposed Procedure Planned Operative Procedure(s): EGD Anesthesia History Anesthesia History - probation manager: Anesthesia History - probation manager Hx Hospitalization No 08/04/24 09:42 Any Problems With Anesthesia No 08/04/24 09:42 Cholinesterase deficiency No 08/04/24 09:42 You/Your Family Experience No 08/04/24 09:42 fever (hyperthermia) with Relationship Recent Exposure to Contagious No 08/06/24 09:11 Disease Does patient have nerve No 08/04/24 09:42 stimulator Patient instructed to have device shut off --Does patient have Pacemaker No 08/06/24 09:11 or ICD? When Was Last Pacemaker Check QUESTION #4 FULL TEXT: You/Your Family Experience fever (hyperthermia) with Anesthesia Last Oral Intake Last Oral intake: Last Oral Intake NPO since 07:00 08/06/24 09:11 Meds taken in AM with sips of Yes 08/06/24 09:11 water? Meds patient instructed to take am of surgery Any additional information?: Yes NPO since: 07:00 (Patient took her a.m. sertraline at 7 AM.) Meds taken in AM with sips of water?: Yes PONV PONV - probation manager: PONV - probation manager Female Yes 08/04/24 09:42 HX of Motion Sickness No 08/04/24 09:42 HX of N/V After Surgery Yes 08/04/24 09:42 Non-Smoker Yes 08/04/24 09:42 Duration of Surgery greater No 08/04/24 09:42 than 60 minutes Number of Risk Factors 3 08/04/24 09:42 PONV Score Moderate Risk 08/04/24 09:42 Height & Weight Height & Weight: Anesthesia: Height & Weight Height 5 ft 3 in 08/06/24 09:11 Weight: 69 kg 08/06/24 09:11 Body Mass Index (BMI) 26.9 08/06/24 09:11 Respiratory Assessment Respiratory Assessment - probation manager: Respiratory Tract Infection Hx - probation manager Hx Respiratory Tract Infection No 08/04/24 09:42 Any additional information?: Yes Hx Respiratory Tract Infection: Yes (Pt still has residual slight cough and runny nose from a cold 3 weeks ago.) STOP Sleep Apnea STOP Sleep Apnea - probation manager: STOP Sleep Apnea - probation manager Hx Hypertension Yes: CONTROLLED WITH MEDS 08/04/24 09:42 Hx Sleep Apnea Yes 08/04/24 09:42 CPAP Yes: DOESN'T WEAR 08/04/24 09:42 BIPAP No 08/04/24 09:42 Do you snore loudly (louder than talking or can be heard Do you often feel tired/ fatigued/ sleepy during daytime? Has anyone observed you stop breathing during sleep? STOP Results Positive 08/04/24 09:42 QUESTION #5 FULL TEXT : Do you snore loudly (louder than talking or can be heard through closed doors)? 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 Specify any problems Hx of Preganancy in last 3 No 08/04/24 09:42 Months Nurse Filling Out Transfusion [id number] 08/04/24 09:42 & Questions: Date: 08/04/24 08/04/24 09:42 Time: 09:44 08/04/24 09:42 Patient unable to answer at this time (ie. confused, unrespo /Reproduction History /Reproductive History - probation manager: /Reproductive Hx- probation manager Hx Now Gestational Age (in weeks): EDC: Hx Hx Para Hx Section SAB No 09/23/23 11:07 PFSH Medical History Osteoporosis Thyromegaly Wears glasses Alcohol use Arthritis Migraine headache Injury of head and neck Non-smoker CPAP (continuous positive airway pressure) dependence History of stress test Cardiology follow-up encounter Hypertension Myalgia and myositis Neurodermatitis Intestinal disaccharidase deficiency Cervicalgia Polyarthrosis Positive Lyme disease serology Sesamoiditis Leg length discrepancy Sprain of left ankle Proteinuria Visual floaters Elevated antinuclear antibody ([place]) level Tachycardia Kalie Rob virus infection Sleep apnea H/O osteopenia Low calcium levels Migraine Depression Anxiety Home Medications ?Medication ?Instructions ?Recorded ?Last Taken ?Type calcium 600 mg (as 1 cap PO DAILY 02/03/18 Unknown History carbonate)-vitamin D3 10 mcg (400 unit) capsule (Calcium with Vitamin D3) multivitamin 1 tab PO QAM 02/03/18 Unknown History ascorbate calcium (vitamin C) 500 500 mg PO DAILY 08/08/20 Unknown History mg tablet atenolol 25 mg tablet 25 mg PO QHS 03/24/21 Unknown History sertraline 100 mg tablet 150 mg PO DAILY 11/07/23 08/06/24 07:00 History meteqspg-utcslz-izh-mkz-ngr-aelj-horse 1 tab PO DAILY 05/22/24 Unknown History 100 mg-100 mg-100 mg-125 mg tab (Tumersaid) alendronate 70 mg tablet 70 mg PO MO 08/04/24 Unknown History Allergy/AdvReac Type Severity Reaction Status Date / Time codeine Allergy Severe unknown Verified 08/06/24 09:10 pseudoephedrine Allergy Severe Unknown Verified 08/06/24 09:10 Sulfa (Sulfonamide Allergy Severe unknown Verified 08/06/24 09:10 Antibiotics) levofloxacin (From Levaquin) Allergy Swelling Verified 08/06/24 09:10 Family History Mother COPD (chronic obstructive pulmonary disease) Narcolepsy Cardiomyopathy Father COPD (chronic obstructive pulmonary disease) AAA (abdominal aortic aneurysm) Sister Asthma Seizures Migraine Grandmother Diabetes Cancer bone Surgical History Hx of repair of rotator cuff Hx of total shoulder replacement H/O rotator cuff surgery S/P left oophorectomy History of salpingectomy Ganglion cyst wrist surgery H/O section Cervical vertebral fusion Social History household members: none housing: condominium current occupational status: retired pets and animals: No Smoking Status: Never smoker second hand exposure: No alcohol intake: current alcohol intake frequency: a few times a week Alcohol type: beer and wine substance use type: does not use caffeine: Yes what type of physical activity do you participate in: none seatbelt use: always do you feel safe at home: Yes additional social history: Review of Systems (Anesthesia) ROS Narrative System reviewed and no additional complaints, except as documented.
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
--- NOTE | 2024-08-06 11:00 | OP.EGD_ITS ---
Patient Name: Gertrudis Uribe Procedure Date: 08/06/2024 10:19 AM Date of : 1960 Age: 63 Procedure: Upper GI endoscopy Indications: Dysphagia Providers: Ghassan Olson MD Referring MD: Gertrudis Cruz Medicines: See the Anesthesia note for documentation of the administered medications Patient Profile: Refer to note in patient chart for documentation of history and physical. Complications: No immediate complications. Estimated blood loss: Minimal. Procedure: Pre-Anesthesia Assessment: - The heart rate, respiratory rate, oxygen saturations, blood pressure, adequacy of pulmonary ventilation, and response to care were monitored throughout the procedure. After obtaining informed consent, the endoscope was passed under direct vision. Throughout the procedure, the patient's blood pressure, pulse, and oxygen saturations were monitored continuously. The gastroscope was introduced through the mouth, and advanced to the second part of duodenum. The upper GI endoscopy was accomplished without difficulty. The patient tolerated the procedure well. Scope In: 10:30:43 AM Scope Out: 10:48:01 AM Total Procedure Duration Time 0 hours 17 minutes 18 seconds Findings: No gross lesions were noted in the duodenal bulb, in the first portion of the duodenum and in the second portion of the duodenum. No biopsies or other specimens were collected for this exam. Diffuse moderately erythematous mucosa without bleeding was found in the gastric body and in the gastric antrum. Biopsies were taken with a cold forceps for histology. Estimated blood loss was minimal. Diffuse moderately erythematous mucosa without bleeding was found in the gastric antrum. Biopsies were taken with a cold forceps for Helicobacter pylori testing. Estimated blood loss was minimal. A single 3 mm semi-sessile polyp with no bleeding and no stigmata of recent bleeding was found in the gastric body. Biopsies were taken with a cold forceps for histology. Estimated blood loss was minimal. The Z-line was regular and was found 39 cm from the incisors. No biopsies or other specimens were collected for this exam. Multiple 3 to 8 mm plaques were found in the middle third of the esophagus and in the lower third of the esophagus. Biopsies were taken with a cold forceps for histology. Estimated blood loss was minimal. The exam was otherwise without abnormality. Impression: - No gross lesions in the duodenal bulb, in the first portion of the duodenum and in the second portion of the duodenum. No specimens collected. - Erythematous mucosa in the gastric body and antrum. Biopsied. - Erythematous mucosa in the antrum. Biopsied. - A single gastric polyp. Biopsied. - Z-line regular, 39 cm from the incisors. No specimens collected. - Multiple plaques in the middle third of the esophagus and in the lower third of the esophagus. Biopsied. - The examination was otherwise normal. Recommendation: - Discharge patient to home (via wheelchair). - Soft diet today. - No aspirin, ibuprofen, naproxen, or other non-steroidal anti-inflammatory drugs for 2 days after biopsy. - Await pathology results. - Telephone my office for pathology results in 1 week. Procedure Code(s): --- Professional --- 03452, Esophagogastroduodenoscopy, flexible, transoral; with biopsy, single or multiple Diagnosis Code(s): --- Professional --- K31.89, Other diseases of stomach and duodenum K31.7, Polyp of stomach and duodenum K22.89, Other specified disease of esophagus R13.10, Dysphagia, unspecified CPT copyright 2021 [employer]. All rights reserved. The codes documented in this report are preliminary and upon die mounter review may be revised to meet current compliance requirements. Ghassan Olson MD 08/06/2024 11:00:01 AM This report has been signed electronically. Number of Addenda: 0 Note Initiated On: 08/06/2024 10:19 AM
--- NOTE | 2024-08-06 11:00 | OP.CCLET_ITS ---
08/06/2024 Gertrudis Cruz [address] [facility] [address] Re : Upper GI endoscopy procedure for Gertrudis Uribe Dear Dr. Cruz This procedure was performed on July. My impressions and recommendations are as follows: Impressions : - No gross lesions in the duodenal bulb, in the first portion of the duodenum and in the second portion of the duodenum. No specimens collected. - Erythematous mucosa in the gastric body and antrum. Biopsied. - Erythematous mucosa in the antrum. Biopsied. - A single gastric polyp. Biopsied. - Z-line regular, 39 cm from the incisors. No specimens collected. - Multiple plaques in the middle third of the esophagus and in the lower third of the esophagus. Biopsied. - The examination was otherwise normal. Recommendations : - Discharge patient to home (via wheelchair). - Soft diet today. - No aspirin, ibuprofen, naproxen, or other non-steroidal anti-inflammatory drugs for 2 days after biopsy. - Await pathology results. - Telephone my office for pathology results in 1 week. My findings are described in the full procedure note, which is enclosed. If I can be of further assistance, please feel free to contact me at Doctor phone number(s): , Work: . Sincerely, Ghassan Olson MD 08/06/2024 11:00:01 AM This report has been signed electronically.
--- NOTE | 2024-08-06 11:03 | PCM.POST.ANE ---
Anesthesia: Postop Eval I Current Vital Signs Temperature: 97.1 F Pulse Rate: 109 Blood Pressure: 92/50 Respiratory Rate: 16 Pulse Ox: 96 Oxygen Delivery Method: Room Air Assessment Airway patent: Yes Spontaneous unlabored respirations: Yes Mental status: Awake nausea: No Vomiting: No Anesthesia Complication: No Fluid Hydration Crystalloid volume administer (ml): 60 Total IV fluid infused: 60 Progress Note Anesthesia document: Postop Eval 1 completed: Yes
--- NOTE | 2024-08-06 16:16 | PCM.POSTANE2 ---
Anesthesia Postop Eval I Sum Postop Eval Completion status Anesthesia document: Postop Eval 1 completed: Yes Anesthesia Postop Eval I Summary Anesthesia Postop Eval I Summary: Anesthesia Postop Eval I: Assessment Summary Airway patent Yes 08/06/24 11:05 [email or web address] Spontaneous unlabored Yes 08/06/24 11:05 [email or web address] respirations Mental status Awake 08/06/24 11:05 [email or web address] nausea No 08/06/24 11:05 [email or web address] Vomiting No 08/06/24 11:05 [email or web address] Anesthesia Postop Eval I: Fluid Summary Crystalloid volume administer 60 08/06/24 11:05 [email or web address] (ml) Colloids volume administered ( ml) Blood Product volume administered (ml) Total IV fluid infused 60 08/06/24 11:05 [email or web address] Anesthesia Postop Eval I: Summary Notes Anesthesia Complication No 08/06/24 11:05 [email or web address] Anesthesia Complication Comment: Post-operative progress note Anesthesia: Postop Eval II Evaluation Mental status: Awake and Calm Pain Level: 0 nausea: No Vomiting: No Complications Anesthesia Complication: No
== END 2024-08-06 11:49 | disposition home or self-care (01) ==
LOC: EN 08:55 → AC 08:56
PROVIDERS: PCP Family Medicine; Referring Provider Family Medicine; Visit Provider Surgery
PROC: 0DJ08ZZ Inspection of Upper Intestinal Tract, Via Natural or Artificial Opening Endoscopic (ICD-10-PCS; CPT 43235; principal; 2024-08-06 09:55)
DX: K29.50 Unspecified chronic gastritis without bleeding (principal); K22.89 Other specified disease of esophagus; K31.7 Polyp of stomach and duodenum; R13.19 Other dysphagia; I10 Essential (primary) hypertension; Z79.899 Other long term (current) drug therapy
CPT/HCPCS: 43239; 88305; 88312; 88342; A4216; J2405

== ENCOUNTER → 2024-09-25 | Outpatient (CLI) | payer MEDICARE, BC, SELFPAY ==
[2024-09-25 11:08] LABS: Absolute Lymphocyte Count 1.41 X10^3/uL (0.83-4.51); Absolute Neutrophil Count 4.7 X10^3/uL (2.0-7.7); Basophil# 0.05 X10^3/uL; Basophil% 0.7 % (0-1); Eosinophil# 0.16 X10^3/uL; Eosinophils% 2.3 % (0-5); Hematocrit 41.2 % (37-47); Hemoglobin 13.8 g/dL (12.0-15.0); Lymphocyte # 1.41 X10^3/ul (0.83-4.51); Lymphocyte % 20.4 % (19-41); Mean Corp Hgb Conc 33.5 g/dL (32-36); Mean Corpuscular Hgb 30.5 pg (27.0-32.0); Mean Corpuscular Volume 90.9 fL (81-99); Mean Platelet Vol. 9.5 fl (6.2-12.0); Monocyte% 8.7 % (0-10); NRBC Flagged by Analyzer 0 % (0-5); Neutrophil # 4.66 X10^3/uL (2.7-7.7); Neutrophil % 67.3 % (47-70); Platelet Count 254 K/mm3 (150-450); RBC Distribution Width CV 12.8 % (11.6-14.6); RBC Distribution Width SD 42.5 fl (35.1-43.9); Red Blood Count 4.53 M/mm3 (4.2-5.4); White Blood Count 6.9 K/mm3 (4.4-11.0)
[2024-09-25 11:13] LABS: Erythrocyte Sedimentation Rate 6 mm/hr (0-30)
[2024-09-25 12:07] LABS: ALB/GLOB Ratio 1.7 RATIO (0.9-2.4); AST(SGOT) 20 U/L (<=31); Alanine Aminotransfer ALT/SGPT 18 U/L (<=34); Albumin, Serum 4.4 g/dL (3.4-4.8); Alkaline Phosphatase 76 U/L (35-104); Anion Gap 12 (5-15); BUN 16 mg/dL (4-19); BUN/Creat Ratio 18.4 RATIO (10-20); Calcium,Total 9.1 mg/dL (7.6-11.0); Carbon Dioxide 25.5 mmol/L (21.0-32.0); Chloride 105 mmol/L (98-108); Creatinine, Serum 0.87 mg/dL (0.70-1.20); EST Glomerular Filtration Rate 74 (>60); Globulin 2.6 g/dL (2.2-4.2); Glucose 114 mg/dL (70-99); Potassium 4.3 mmol/L (3.3-5.1); Sodium Level 143 mmol/L (133-145)
[2024-09-25 12:20] LABS: CRP 3.81 mg/L (0.0-3.0); Cholesterol 219 mg/dL (<=200); High Density Lipoprotein 52 mg/dL; Low Density Lipoprotein Calc. 135 mg/dL; Triglycerides 158 mg/dL; Very Low Density Lipoprotein 32 mg/dL (5-40); cholesterol:hdl ratio screen 4.19
[2024-09-28 14:08] LABS: ANTINUCLEAR ANTIBODIES DIRECT Negative (Negative)
== END | disposition home or self-care (01) ==
PROVIDERS: PCP Family Medicine; Referring Provider Family Medicine; Visit Provider Family Medicine
DX: Z51.81 Encounter for therapeutic drug level monitoring (principal); E78.5 Hyperlipidemia, unspecified; M25.50 Pain in unspecified joint; M79.10 Myalgia, unspecified site
CPT/HCPCS: 36415; 80053; 80061; 84443; 85025; 85652; 86038; 86140

== ENCOUNTER → 2024-10-20 | Outpatient (CLI) | payer MEDICARE, BC, SELFPAY | END | disposition home or self-care (01) | LOC: LABSPEC 16:31 | PROVIDERS: PCP Family Medicine; Referring Provider Nurse Practitioner Women's Health; Visit Provider Nurse Practitioner Women's Health | DX: Z12.4 Encounter for screening for malignant neoplasm of cervix (principal); Z11.3 Encounter for screening for infections with a predominantly sexual mode of transmission | CPT/HCPCS: 87491; 87591; 88175; G0145 ==

== ENCOUNTER → 2024-10-27 | Outpatient (CLI) | payer MEDICARE, BC, SELFPAY ==
--- NOTE | 2024-10-27 12:00 | BI_ITS ---
EXAM: SCRN MAMM (CAD)W/JOLANTA BILAT DATE: 10/27/2024 CLINICAL HISTORY: F, Age 64 y/o , SCREENING FOR BREAST CANCER BREAST CANCER RISK ASSESSMENT: Not assessed. TECHNIQUE: Bilateral screening digital breast tomosynthesis with 2D and 3D images. Computer aided detection. COMPARISON: Prior exam(s) dated September 24, 2023.. FINDINGS: TISSUE DENSITY: The breast tissue is extremely dense which lowers the sensitivity of mammography. Bilateral Breast Mammographic Findings: No significant masses, calcifications or other abnormalities are identified. No suspicious masses, areas of developing architectural distortion, or suspicious calcifications. There has been no significant interval change. BI/SCRN MAMM (CAD)W/JOLANTA BILAT IMPRESSION: Right Breast: BIRADS 1 NEGATIVE. Left Breast: BIRADS 1 NEGATIVE. OVERALL FINAL ASSESSMENT: BIRADS 1 NEGATIVE RECOMMENDATION: Routine annual follow-up in 1 Year A letter with findings and recommendations will be mailed to the patient. Reading Location: [place] [address]
== END | disposition home or self-care (01) ==
LOC: OPBI 11:54
PROVIDERS: PCP Family Medicine; Referring Provider Nurse Practitioner Women's Health; Visit Provider Nurse Practitioner Women's Health
DX: Z12.31 Encounter for screening mammogram for malignant neoplasm of breast (principal)
CPT/HCPCS: 77063; 77067

== ENCOUNTER → 2025-02-01 | Outpatient (CLI) | payer MEDICARE, BC, SELFPAY ==
--- NOTE | 2025-02-01 11:56 | RAD_ITS ---
PROCEDURE: L/S SPINE MIN 4 VIEWS 02/01/2025 REASON FOR EXAM: R/O FX, LOW BACK PAIN TECHNIQUE: L/S SPINE MIN 4 VIEWS COMPARISON: No FINDINGS: Moderate scoliosis. Diffuse facet arthritis. Relatively preserved disc spaces. Grade 1 anterolisthesis, L4. No acute bone or soft tissue pathology. RAD/L/S Spine Min 4 Views IMPRESSION: Lumbar spine scoliosis and degeneration Reading Location: [place]
== END | disposition home or self-care (01) ==
LOC: RAD 11:52
PROVIDERS: PCP Family Medicine; Referring Provider Nurse Practitioner Family; Visit Provider Nurse Practitioner Family
DX: M54.50 Low back pain, unspecified (principal)
CPT/HCPCS: 72110